=== PATIENT | female | born 1990 | race Caucasian/White ===

== ENCOUNTER 2020-06-19 22:14 | Emergency (ER) | payer SELFPAY ==
[2020-06-19 22:22] VITALS: BP 169/128; PULSE 92; RESP 18; TEMP 36.7; O2SAT 98; BMI 42.3
--- NOTE | 2020-06-19 22:50 | W.ED.ANIMALB ---
HPI - Animal Bite General: Chief Complaint: Animal Bite Stated Complaint: SORE ON L BREAST/POSS SPIDER BITE Time Seen by Provider: 06/19/20 22:41 Source: patient Mode of arrival: ambulatory Limitations: no limitations History of Present Illness: HPI narrative: Patient comes in for a sore to her left breast. Patient reports has noticed this starting last week as a small bump and now has ulcerated out over the last 2 to 3 days. Patient appears well. Patient appears in no acute distress. Review of Systems General: Reports: 10 or more systems reviewed and unremarkable except in HPI and below Skin/Breast: Reports: erythema and new lesions [facility] ED Female Reproductive History: Date of last menstrual period: 06/12/20 Physical Exam Const: COMMON NORMALS: no acute distress and patient oriented x3 GENERAL APPEARANCE: cooperative HENMT: COMMON NORMALS: normocephalic and Normal external nose present HEAD & SCALP: normal to inspection and normocephalic NOSE: Normal external nose present MOUTH: Normal oral and palatal mucosa present Eye: GENERAL EYE: appearance normal, both eyes and all related structures Neck/C-Spine: COMMON NORMALS: full ROM Chest: COMMONS NORMALS: normal inspection of the chest OTHER: To the 2 o'clock position of the left breast approximately 4 cm from the areola there is a ulcerated lesion approximately 5 mm in diameter with a area of redness 2 cm surrounding it. Resp: COMMON NORMALS: normal respiratory effort EFFORT & INSPECTION: Yes able to speak in complete sentences Cardio: COMMON NORMALS: regular rate and regular rhythm RATE: regular rate RHYTHM: regular rhythm GI: COMMON NORMALS: non-tender Extremity: COMMON NORMALS: normal to inspection Neuro: COMMON NORMALS: patient oriented x3 and moves all extremities Psych: COMMON NORMALS: mental status grossly normal and cooperative Skin: COMMON NORMALS: no rashes or lesions noted GENERAL SKIN EXAM: no rashes or lesions noted Course Vital Signs: Vital signs: Vital Signs Temperature 98.1 F 06/19/20 22:22 Pulse Rate 92 06/19/20 22:22 Respiratory Rate 18 06/19/20 22:22 Blood Pressure 169/128 06/19/20 22:22 Pulse Oximetry 98 06/19/20 22:22 MDM - Animal Bite MDM Narrative: Medical decision making narrative: Patient comes in for ulceration with redness and tenderness to the left breast. Patient has a 2 to 3 cm area of redness to the left breast with a centralized ulcer. Remainder of exam is normal. Differential diagnosis infected insect bite, folliculitis, MRSA. Reviewed exam with patient recommended treatment with Bactrim DS 1 tablet twice a day for the next 7 to 10 days. Patient reported understanding of care plan and need for follow-up. Discharge Plan Discharge Patient Disposition: Home Clinical Impression: Infected insect bite of chest Qualifiers: Encounter type: initial encounter Laterality: left Qualified Code(s): S20.362A - Insect bite (nonvenomous) of left front wall of thorax, initial encounter Condition: Stable Prescriptions: New Bactrim DS 800-160 mg tablet 1 tab PO BID 10 Days Qty: 20 RF: 0 Discharge Orders: Discharge ED (Routine); Ordered 06/19/20 Ordered By: Ralph Barragan Discharge Diet: Usual diet Discharge Activity: Increase activity as tolerated Patient Instructions: Wound Infection (ED) Activity Restrictions/Additional Instructions: Continue with routine care. Wash wound twice daily with mild soap and water, and apply triple antibiotic ointment afterward. Take antibiotics by mouth as directed. Follow-up with primary care in 1 week for recheck. Return to the emergency department for worsening redness, high fever or new concerns. Coding Level of Care Code ED Contour Path Tape Mill Operator for Cate Barnett Exam Comprehensive
[2020-06-19] MEDS: sulfamethoxazole-trimeth DS 160-800 mg Tablet 1 TAB PO (23:01)
== END 2020-06-19 23:07 | disposition home or self-care (01) ==
PROVIDERS: Emergency Provider Nurse Practitioner Family
DX: S20.362A Insect bite (nonvenomous) of left front wall of thorax, initial encounter (principal); L08.9 Local infection of the skin and subcutaneous tissue, unspecified; W57.XXXA Bitten or stung by nonvenomous insect and other nonvenomous arthropods, initial encounter
CPT/HCPCS: 12345; 99281; 99282

== ENCOUNTER 2020-06-22 20:10 | Emergency (ER) | payer SELFPAY ==
[2020-06-22 20:16] VITALS: BP 171/117; PULSE 81; RESP 18; TEMP 36.5; O2SAT 98; BMI 42.3
--- NOTE | 2020-06-22 20:47 | ED_ITS ---
HPI - Skin/Abscess/Foreign Bdy General: Chief complaint: Skin/Abscess/Foreign Body Stated complaint: sore on left breast Time Seen by Provider: 06/22/20 20:31 Source: patient Mode of arrival: ambulatory Limitations: no limitations History of Present Illness: HPI narrative: 30-year-old female patient presents to the emergency department with 4-day onset of wound to the left breast. She does not have a history of MRSA. She states received Bactrim and wound has not healed. She was seen in the ED on 06/19/2020 and prescribed Bactrim DS. He is requesting a wound culture be completed today. She denies pain or irritation of the area. She states the area is draining. She denies fever chills or redness or swelling. MD complaint: abscess/boil Onset (ago): day(s) (3-4) Tetanus up to date: yes Associated symptoms: Deny chills, fever(s), nausea or vomiting Treatments prior to arrival: bandages, attempted to drain pus at home and antibiotic Review of Systems General: Reports: 10 or more systems reviewed and unremarkable except in HPI and below Const: Denies: fever(s), chills or diaphoresis Eyes: Denies: blurry vision or eye redness ENMT: Denies: throat pain, dental pain or disequilibrium Card: Denies: chest pain, palpitations or irregular heart rhythm Resp: Denies: dyspnea, productive cough, non-productive cough or wheezing GI: Denies: abdominal pain, nausea or vomiting : Denies: difficulty voiding or dysuria Musc: Denies: back pain Skin/Breast: Reports: sores (left breast); Denies: rash or pruritus Neuro: Denies: headache(s), weakness in extremities or behavioral changes Psych: Denies: anxiety or depression Danny/Lymph: Denies: easy bruising [facility] ED Female Reproductive History: Date of last menstrual period: 06/08/20 Physical Exam Const: COMMON NORMALS: no acute distress, patient oriented x3, healthy appearing and alert GENERAL APPEARANCE: cooperative, comfortable and well hydrated HENMT: COMMON NORMALS: normocephalic, Normal external nose present and moist oral mucous membranes HEAD & SCALP: normocephalic NOSE: Normal external nose present Eye: COMMON NORMALS: Equal, round and reactive pupils present and EOMs intact bilaterally GENERAL EYE: appearance normal, both eyes and all related structures PUPIL: Yes Equal, round and reactive pupils present Neck/C-Spine: COMMON NORMALS: full ROM and no lymphadenopathy GENERAL: Yes normal visual inspection and Yes trachea midline CERVICAL SPINE: Yes cervical ROM normal Lymph: LYMPHATIC: no lymphadenopathy noted Chest: COMMONS NORMALS: normal inspection of the chest Resp: COMMON NORMALS: normal respiratory effort and clear to auscultation bilaterally AUSCULTATION: clear to auscultation bilaterally Cardio: COMMON NORMALS: regular rhythm, S1 normal heart sound present and S2 normal heart sound present RHYTHM: regular rhythm HEART SOUNDS: S1 normal heart sound present and S2 normal heart sound present GI: COMMON NORMALS: Soft to palpation and non-tender INSPECTION: Yes normal to inspection PALPATION: Yes Soft to palpation : COMMON NORMALS: Yes no CVA tenderness BLADDER/KIDNEY EXAM: Yes no CVA tenderness Back/Pelvis: COMMON NORMALS: no CVA tenderness and thoracic and lumbar spine normal to inspection Extremity: COMMON NORMALS: normal to inspection and capillary refill normal Neuro: COMMON NORMALS: patient oriented x3 and no focal motor deficits SENSORIUM/ORIENTATION: Yes alert Psych: COMMON NORMALS: mental status grossly normal, Normal thought process present and cooperative ACTIVITY/MOTOR BEHAVIOR: Yes appropriate eye contact THOUGHT PROCESS: Normal thought process present Skin: COMMON NORMALS: no rashes or lesions noted, turgor normal and no petechiae GENERAL SKIN EXAM: no rashes or lesions noted, elasticity normal and turgor normal WOUNDS: Yes wounds noted size (2.0 cm x 1.5 cm left breast, 4 cm at 3 o'clock, no mass/erythema), bed granulating well, drainage serosanguineous (scant) and open; without any surrounding erythema Course Vital Signs: Vital signs: Vital Signs Temperature 97.7 F 06/22/20 20:16 Pulse Rate 81 06/22/20 20:16 Respiratory Rate 18 06/22/20 20:16 Blood Pressure 171/117 06/22/20 20:16 Pulse Oximetry 98 06/22/20 20:16 MDM - Skin/Abscess/Foreign Bdy MDM Narrative: Medical decision making narrative: 30-year-old female patient presents to the emergency department with 4-day history of skin abscess to the left breast. She reports concern as abscess has not healed and she has been on Bactrim for 2 to 3 days. Explanation provided that antibiotics will take 24 to 48 hours and sometimes up to 72 hours before improvement is noted; area is not indurated, is draining without surrounding cellulitis, culture was obtained, was nontender, no breast masses appreciated. Patient was hypertensive upon exam as she was during her previous visit on 06/19/2020; social service referral placed so patient can have primary care follow-up for blood pressure and reevaluation for abscess; I counseled patient regarding low-salt diet and low-fat diet with need for weight loss. She states new to the area and blood pressure was normal prior to her arriving to [place]. Discharge Plan Discharge Patient Disposition: Home Clinical Impression: Abscess of skin or subcutaneous tissue Qualifiers: Site of cutaneous abscess: trunk Site of cutaneous abscess of trunk: chest wall Qualified Code(s): L02.213 - Cutaneous abscess of chest wall HTN (hypertension) Qualifiers: Hypertension type: unspecified Qualified Code(s): I10 - Essential (primary) hypertension Condition: Stable Prescriptions: New mupirocin 2 % ointment 1 applic topical BID Qty: 15 RF: 0 No Action Bactrim DS 800-160 mg tablet 1 tab PO BID 10 Days Qty: 20 RF: 0 Discharge Orders: Discharge ED (Routine); Ordered 06/22/20 Ordered By: Nichole Tompkins Discharge Diet: Cardiac and Low Fat Discharge Activity: Resume usual activity Patient Instructions: Wound Infection (ED), Abscess (ED) Activity Restrictions/Additional Instructions: Take Bactrim until all gone, cleanse with mild soap daily, keep wound covered until completely healed. Avoid picking or attempting draining of the area. May apply prescribed ointment to the area twice daily for 7 days Low-salt diet, no added salt as this will help decrease her blood pressure, high school social studies tutor will be contacting you with a follow-up appointment with a primary care provider in regards to your blood pressure and reevaluation of the wound to the left breast. Return to the emergency department if you develop worsening/concerning symptoms. Coding Level of Care Code ED Passenger Rate Clerk for Cate Barnett Exam Comprehensive
--- NOTE | 2020-06-26 11:06 | DCPLANNER ---
airport manager had message to speak with patient about getting established with a primary care physician. airport manager called [phone], unable to speak with patient at this time, a voicemail was left for patient to return case liner phone call.
== END 2020-06-22 21:05 | disposition home or self-care (01) ==
PROVIDERS: Emergency Provider Nurse Practitioner Family
DX: L02.213 Cutaneous abscess of chest wall (principal); I10 Essential (primary) hypertension
CPT/HCPCS: 12345; 87070; 87075; 87205; 99281; 99282

== ENCOUNTER 2020-09-07 19:23 | Emergency (ER) | payer SELFPAY ==
[2020-09-07 19:32] VITALS: BP 167/119; PULSE 90; RESP 18; TEMP 36.8; O2SAT 98; BMI 40.7
[2020-09-07] MEDS: ketorolac 30 mg/mL INJ IVP (21:41)
[2020-09-07 21:42] VITALS: RESP 18; O2SAT 98
[2020-09-07] MEDS: sodium chloride 0.9% 1,000 ML 999 ML IV (21:42)
[2020-09-07] MEDS: morphine 4 mg/mL SDV 1 mL IVP (21:42)
[2020-09-07] MEDS: ondansetron 2 mg/ML SDV 2 mL 4 MG IVP (21:42)
[2020-09-07 21:45] LABS: Add Urine Microscopic? YES; Bilirubin Urine 1+ (Negative); Blood Urine 3+ (Negative); Glucose Urine UA Norm (Normal); Ketones Urine 1+ (Negative); Leukocyte Esterase Urine Trace (Negative); Nitrate Urine Negative (Negative); Protein Urine 1+ (Negative); Specific Gravity, Urine 1.025 (1.005-1.030); Urine Appearance Cloudy (CLEAR); Urine Color Yellow (Yellow); Urobilinogen Urine 4 mg/dL (Negative); pH Urine 5 (5-7)
[2020-09-07 21:46] LABS: Amorphous Sediment Urine 4+ /hpf; Bacteria Urine TRACE /hpf; Calcium Oxalate Crystals Urine 0-4 /hpf; RBC Urine 0-4 /hpf (0-2); Squamous Epithelial Cell Urine 0-4 /hpf (0-5); WBC Urine 0-4 /hpf (0-5)
--- NOTE | 2020-09-07 21:49 | W.ED.NAVMDI ---
HPI - Nausea/Vomiting/Diarrhea General: Chief complaint: Nausea/Vomiting/Diarrhea Stated complaint: N/V X 4 DAYS Time Seen by Provider: 09/07/20 20:54 History of Present Illness: HPI Narrative: Healthy 30-year-old female presents with 4 days of nausea vomiting and some diarrhea. No blood in the stool or vomit. She has a niece who vomited once today or yesterday, and another family member has been nauseated. No other sick contacts. No documented fever, but she has had chills. She states she has had a mild cough. No shortness of breath or sputum production. MD elicited complaint: nausea, vomiting, diarrhea and abdominal pain Onset (ago): day(s) (4) Description of vomiting: food contents and watery Associated nausea: Yes Associated abdominal pain: Yes Location of pain: Diffuse Pain consistency: intermittent Severity: moderate Quality: cramping and stabbing Relieving factors: none Context: sick contacts (Possibly) Associated symtoms: Reports cough, diaphoresis, fevers/chills and nausea; Denies anxiety, change in vision, chest pain, dizziness, dysuria or fecal incontinence Review of Systems Const: Reports: chills and diaphoresis; Denies: fever(s) Eyes: Denies: change in vision ENMT: Denies: throat pain, nasal discharge or nasal congestion Card: Denies: chest pain Resp: Reports: non-productive cough; Denies: dyspnea, productive cough or wheezing GI: Reports: nausea; Denies: fecal incontinence : Denies: dysuria or urinary frequency Musc: Denies: neck pain or back pain Skin/Breast: Denies: rash or erythema Neuro: Denies: dizziness Psych: Denies: anxiety [facility] ED Female Reproductive History: Date of last menstrual period: 06/08/20 Physical Exam Const: GENERAL APPEARANCE: well developed ORIENTATION/CONSCIOUSNESS: Yes oriented to person, Yes oriented to place and Yes oriented to time HENMT: COMMON NORMALS: normocephalic, external ears normal and Normal external nose present HEAD & SCALP: normocephalic FACE & SINUS: normal facial exam NOSE: Normal external nose present and No nasal discharge present EXTERNAL EAR: Yes external ears normal Eye: COMMON NORMALS: Equal, round and reactive pupils present, EOMs intact bilaterally and conjunctivae normal EYELID: eyelids normal CONJUNCTIVA: Yes conjunctivae normal PUPIL: Yes Equal, round and reactive pupils present Neck/C-Spine: GENERAL: No tracheal deviation Chest: COMMONS NORMALS: normal inspection of the chest CHEST: No tenderness Resp: COMMON NORMALS: clear to auscultation bilaterally EFFORT & INSPECTION: No tachypneic, No respiratory distress, No retractions, No uses accessory muscles and No tracheal deviation AUSCULTATION: clear to auscultation bilaterally, no rhonchi, no wheezes and lung sounds not diminished Cardio: COMMON NORMALS: regular rate and regular rhythm RATE: regular rate RHYTHM: regular rhythm HEART SOUNDS: no murmurs PERIPHERAL PULSES: radial pulses present GI: INSPECTION: No abdominal distension AUSCULTATION: No Hyperactive bowel sounds present and No Hypoactive bowel sounds present PALPATION: Yes Tenderness to palpation present (GI) (Diffuse), No Guarding due to palpation present (GI) and No Rigid due to palpation PERCUSSION: no dullness to percussion and no tympanic to percussion Neuro: SENSORIUM/ORIENTATION: Yes oriented to person, Yes oriented to place and Yes oriented to time Psych: COMMON NORMALS: mental status grossly normal Skin: COMMON NORMALS: no rashes or lesions noted GENERAL SKIN EXAM: no rashes or lesions noted Course Vital Signs: Vital signs: Vital Signs Temperature 98.2 F 09/07/20 19:32 Pulse Rate 88 09/07/20 23:39 Respiratory Rate 18 09/08/20 00:14 Blood Pressure 146/89 09/08/20 00:14 Pulse Oximetry 98 09/08/20 00:14 MDM - Nausea/Vomiting/Diarrhea MDM Narrative: Medical decision making narrative: Patient improved after antiemetics, fluids. She is feeling much better. She will go home on Zofran scheduled for the next 24 hours, then as needed. Her labs are benign. Lab Data: Labs: Lab Results 09/07/20 09/07/20 09/07/20 Range/Units 20:23 21:15 22:28 WBC 10.1 H (4.0-10.0) 10^3/ uL RBC 4.98 (4.1-5.3) 10^6/u L Hgb 15.0 (11.5-15.3) g/dL Hct 48.9 H (37.0-47.0) % MCV 98.2 (81-99) fL MCH 30.1 (28.0-34.0) pg MCHC 30.7 (30.0-36.0) g/dL RDW 13.4 (12.1-15.1) % Plt Count 283 (130-400) 10^3/c mm MPV 9.8 (7.4-10.4) fL Neut % (Auto) 62.5 % Lymph % (Auto) 27.3 % [place] % (Auto) 6.1 % Eos % (Auto) 3.4 % Baso % (Auto) 0.4 % Neut # (Auto) 6.29 (1.8-7.7) 10^3/u L Lymph # (Auto) 2.8 (0.8-4.8) 10^3/u L [place] # (Auto) 0.6 (0.2-0.9) 10^3/u L Eos # (Auto) 0.3 (0.0-0.8) 10^3/u L Baso # (Auto) 0.0 (0.0-0.1) 10^3/u L Nucleated RBC % (a uto) 0 % Nucleated RBCs # 0.0 /100WBC Sodium 138 (136-145) mmol/L Potassium 3.6 (3.5-5.1) mmol/L Chloride 106 (98-107) mmol/L Carbon Dioxide 23 (22-29) mmol/L Anion Gap 12.6 (5-19) BUN 7 (6-20) mg/dL Creatinine 0.5 (0.5-0.9) mg/dL GFR Calculation 144.9 H (90-130) mL/min Glucose 121 H (65-115) mg/dL Calculated Osmolal ity 285 (285-295) mOsm/k g Calcium 7.8 L (8.5-10.5) mg/dL Total Bilirubin 0.2 (0.15-1.2) mg/dL AST 12 (0-32) U/L ALT 24 (0-33) U/L Alkaline Phosphata se 61 (35-105) IU/L C-Reactive Protein 14.5 H (0.0-4.9) mg/L Total Protein 6.3 L (6.6-8.7) g/dL Albumin 3.7 (3.5-5.2) g/dL Globulin 2.6 (1.3-4.6) g/dL Lipase 26 (13-60) U/L HCG, Qual (Negative) Urine Color Yellow (Yellow) Urine Appearance Cloudy (CLEAR) Urine pH 5 (5-7) Ur Specific Gravit y 1.025 (1.005-1.030) Urine Protein 1+ H (Negative) Urine Glucose (UA) Norm (Normal) Urine Ketones 1+ H (Negative) Urine Blood 3+ H (Negative) Urine Nitrate Negative (Negative) Urine Bilirubin 1+ H (Negative) Urine Urobilinogen 4 H (Negative) mg/dL Ur Leukocyte Shreya ase Trace H (Negative) Urine RBC 0-4 H (0-2) /hpf Urine WBC 0-4 H (0-5) /hpf Ur Squamous Epith Cells 0-4 H (0-5) /hpf Calcium Oxalate Cr ystal 0-4 H /hpf Amorphous Sediment 4+ /hpf Urine Bacteria Trace (NONE) /hpf 09/07/20 Range/Units 22:28 WBC (4.0-10.0) 10^3/ uL RBC (4.1-5.3) 10^6/u L Hgb (11.5-15.3) g/dL Hct (37.0-47.0) % MCV (81-99) fL MCH (28.0-34.0) pg MCHC (30.0-36.0) g/dL RDW (12.1-15.1) % Plt Count (130-400) 10^3/c mm MPV (7.4-10.4) fL Neut % (Auto) % Lymph % (Auto) % [place] % (Auto) % Eos % (Auto) % Baso % (Auto) % Neut # (Auto) (1.8-7.7) 10^3/u L Lymph # (Auto) (0.8-4.8) 10^3/u L [place] # (Auto) (0.2-0.9) 10^3/u L Eos # (Auto) (0.0-0.8) 10^3/u L Baso # (Auto) (0.0-0.1) 10^3/u L Nucleated RBC % (a uto) % Nucleated RBCs # /100WBC Sodium (136-145) mmol/L Potassium (3.5-5.1) mmol/L Chloride (98-107) mmol/L Carbon Dioxide (22-29) mmol/L Anion Gap (5-19) BUN (6-20) mg/dL Creatinine (0.5-0.9) mg/dL GFR Calculation (90-130) mL/min Glucose (65-115) mg/dL Calculated Osmolal ity (285-295) mOsm/k g Calcium (8.5-10.5) mg/dL Total Bilirubin (0.15-1.2) mg/dL AST (0-32) U/L ALT (0-33) U/L Alkaline Phosphata se (35-105) IU/L C-Reactive Protein (0.0-4.9) mg/L Total Protein (6.6-8.7) g/dL Albumin (3.5-5.2) g/dL Globulin (1.3-4.6) g/dL Lipase (13-60) U/L HCG, Qual Negative (Negative) Urine Color (Yellow) Urine Appearance (CLEAR) Urine pH (5-7) Ur Specific Gravit y (1.005-1.030) Urine Protein (Negative) Urine Glucose (UA) (Normal) Urine Ketones (Negative) Urine Blood (Negative) Urine Nitrate (Negative) Urine Bilirubin (Negative) Urine Urobilinogen (Negative) mg/dL Ur Leukocyte Shreya ase (Negative) Urine RBC (0-2) /hpf Urine WBC (0-5) /hpf Ur Squamous Epith Cells (0-5) /hpf Calcium Oxalate Cr ystal /hpf Amorphous Sediment /hpf Urine Bacteria (NONE) /hpf Discharge Plan Discharge Patient Disposition: Home Clinical Impression: Gastroenteritis Condition: Stable Prescriptions: New Zofran 4 mg tablet 4 mg PO Q6H PRN (Reason: nausea and vomiting) Qty: 10 RF: 0 No Action mupirocin 2 % ointment 1 applic topical BID Qty: 15 RF: 0 Discharge Orders: Discharge ED (Routine); Ordered 09/07/20 Ordered By: Mingo Infante Discharge Diet: Advance as tolerated and Clear Liquid Discharge Activity: Increase activity as tolerated Patient Instructions: Gastroenteritis (ED) Activity Restrictions/Additional Instructions: Return for continued vomiting despite treatment, blood in the vomitus or stool, fever greater than 100, worsening abdominal pain despite treatment, other concerning symptoms. See your doctor in 2 to 3 days for follow-up. Stand Alone Forms: Work/School Release Coding Level of Care Code ED Fish Checker for Chg Fwd Exam Comprehensive
[2020-09-07 21:54] LABS: Basophils % 0.4 %; Eosinophils # 0.3 10^3/uL (0.0-0.8); Eosinophils % 3.4 %; Hematocrit 48.9 % (37.0-47.0); Lymphocytes # 2.8 10^3/uL (0.8-4.8); Lymphocytes % 27.3 %; Mean Corpuscular HGB Conc 30.7 g/dL (30.0-36.0); Mean Corpuscular Hemoglobin 30.1 pg (28.0-34.0); Mean Corpuscular Volume 98.2 fL (81-99); Mean Platelet Volume 9.8 fL (7.4-10.4); Monocytes # 0.6 10^3/uL (0.2-0.9); Monocytes % 6.1 %; Neutrophils # 6.29 10^3/uL (1.8-7.7); Neutrophils % 62.5 %; Nucleated Red Blood Cells % 0 %; Platelet Count 283 10^3/cmm (130-400); Red Blood Count 4.98 10^6/uL (4.1-5.3); Red Cell Distribution Width 13.4 % (12.1-15.1); White Blood Count 10.1 10^3/uL (4.0-10.0)
[2020-09-07 22:45] LABS: HCG, Serum Qual Negative (Negative)
[2020-09-07 22:52] LABS: Alanine Aminotransferase 24 U/L (0-33); Albumin Level 3.7 g/dL (3.5-5.2); Alkaline Phosphatase 61 IU/L (35-105); Anion Gap 12.6 (5-19); Aspartate Amino Transferase 12 U/L (0-32); Blood Urea Nitrogen 7 mg/dL (6-20); C Reactive Protein 14.5 mg/L (0.0-4.9); Calcium 7.8 mg/dL (8.5-10.5); Carbon Dioxide 23 mmol/L (22-29); Chloride 106 mmol/L (98-107); Globulin 2.6 g/dL (1.3-4.6); Glomerular Filtration Rate 144.9 mL/min (90-130); Glucose 121 mg/dL (65-115); Lipase 26 U/L (13-60); Osmolality Calculated 285 mOsm/kg (285-295); Potassium 3.6 mmol/L (3.5-5.1); Sodium 138 mmol/L (136-145); Total Bilirubin 0.2 mg/dL (0.15-1.2); Total Protein 6.3 g/dL (6.6-8.7)
[2020-09-07 23:39] VITALS: BP 146/89; PULSE 88; RESP 18; O2SAT 98
[2020-09-08 00:14] VITALS: BP 146/89; RESP 18; O2SAT 98
== END 2020-09-08 00:15 | disposition home or self-care (01) ==
PROVIDERS: Physician Assistant; Emergency Provider Emergency Medicine
DX: K52.9 Noninfective gastroenteritis and colitis, unspecified (principal)
CPT/HCPCS: 80053; 81001; 83690; 84703; 85025; 86140; 96361; 96374; 96375; 99284; J1885; J2270; J2405; J7030

== ENCOUNTER 2020-11-03 19:44 | Emergency (ER) | payer OTHER, SELFPAY ==
[2020-11-03 19:47] VITALS: BP 181/113; PULSE 92; RESP 16; TEMP 36.9; O2SAT 99; BMI 42.3
--- NOTE | 2020-11-03 19:56 | W.ED.GENADLT ---
HPI - General Adult General: Chief complaint: General Medical Stated complaint: possible strep throat Time Seen by Provider: 11/03/20 19:48 Source: patient Mode of arrival: ambulatory Limitations: no limitations History of Present Illness: HPI narrative: Patient comes in with a sore throat for about 2 to 3 days. Patient feels worse today. Patient reports no fever. Review of Systems General: Reports: 10 or more systems reviewed and unremarkable except in HPI and below ENMT: Reports: throat pain [facility] ED Female Reproductive History: Date of last menstrual period: 06/08/20 Physical Exam Const: COMMON NORMALS: no acute distress and patient oriented x3 GENERAL APPEARANCE: cooperative HENMT: COMMON NORMALS: normocephalic, TM's normal bilaterally and Normal external nose present HEAD & SCALP: normal to inspection and normocephalic NOSE: Normal external nose present and Nasal discharge present EXTERNAL AUDITORY CANAL: Abnormal EAC present EAC laterality: left Details: otic discharge TYMPANIC MEMBRANE: TM's normal bilaterally MOUTH: Normal oral and palatal mucosa present THROAT: posterior oropharynx normal Eye: GENERAL EYE: appearance normal, both eyes and all related structures Neck/C-Spine: COMMON NORMALS: full ROM Lymph: LYMPHATIC: no lymphadenopathy noted Chest: COMMONS NORMALS: normal inspection of the chest Resp: COMMON NORMALS: normal respiratory effort EFFORT & INSPECTION: Yes able to speak in complete sentences Cardio: COMMON NORMALS: regular rate and regular rhythm RATE: regular rate RHYTHM: regular rhythm GI: COMMON NORMALS: non-tender : COMMON NORMALS: Yes no CVA tenderness BLADDER/KIDNEY EXAM: Yes no CVA tenderness Back/Pelvis: COMMON NORMALS: no CVA tenderness and thoracic and lumbar spine normal to inspection Extremity: COMMON NORMALS: normal to inspection Neuro: COMMON NORMALS: patient oriented x3 and moves all extremities Psych: COMMON NORMALS: mental status grossly normal and cooperative Skin: COMMON NORMALS: no rashes or lesions noted GENERAL SKIN EXAM: no rashes or lesions noted Course Vital Signs: Vital signs: Vital Signs Temperature 98.4 F 11/03/20 19:47 Pulse Rate 92 11/03/20 19:47 Respiratory Rate 16 11/03/20 19:47 Blood Pressure 181/113 11/03/20 19:47 Pulse Oximetry 99 11/03/20 19:47 MDM - General Adult MDM Narrative: Medical decision making narrative: Patient comes in for sore throat for 3 days. Patient denies any fever. On exam we note posterior pharyngeal nasal drainage, mild erythema, no cervical lymphadenopathy, bilateral TMs are clear, patient does have some whitish discharge in the left ear canal. No significant redness or swelling is noted to the left ear canal. Differential diagnosis includes not limited to upper respiratory infections, viral syndrome, strep pharyngitis. Strep test was performed and was negative. Patient was given dexamethasone 10 mg p.o. for throat pain. Patient was encouraged to drink plenty of fluids, use acetaminophen and ibuprofen for discomfort, and [id number] cold and flu medication as needed. Patient reported understanding agreed to plan. Lab Data: Labs: Lab Results 11/03/20 Range/Units 19:53 Group A Strep Rapi d Negative (Negative) Discharge Plan Discharge Patient Disposition: Home Clinical Impression: URI (upper respiratory infection) Qualifiers: URI type: acute pharyngitis Pharyngitis/tonsillitis etiology: unspecified etiology Qualified Code(s): J02.9 - Acute pharyngitis, unspecified Condition: Stable Prescriptions: No Action mupirocin 2 % ointment 1 applic topical BID Qty: 15 RF: 0 Zofran 4 mg tablet 4 mg PO Q6H PRN (Reason: nausea and vomiting) Qty: 10 RF: 0 Discharge Orders: Discharge ED (Routine); Ordered 11/03/20 Ordered By: Ralph Barragan Discharge Diet: Usual diet Discharge Activity: Increase activity as tolerated Patient Instructions: Upper Respiratory Infection (ED), Opioid Safety Activity Restrictions/Additional Instructions: Drink plenty of fluids. Use acetaminophen and ibuprofen for discomfort. You had a negative strep test, we do a throat culture at the time of a negative strep test. If something grows out that requires antibiotic we will contact you and call in medication. You may use [id number] cold and flu medication for further symptoms such as nasal congestion and cough. Is important to stay well-hydrated. Is important to get plenty of rest. Follow-up with primary care as needed. Return to the ER for new concerns. Stand Alone Forms: Work/School Release Coding Level of Care Code ED Application Integration Specialist for Cate Fwd Exam Comprehensive
[2020-11-03 20:03] LABS: Rapid Strep A Test Negative (Negative)
[2020-11-03] MEDS: dexamethasone 4 mg Tablet 10 MG PO (20:20)
[2020-11-03 20:58] VITALS: BP 181/113; PULSE 92; RESP 16; O2SAT 99
== END 2020-11-03 20:30 | disposition home or self-care (01) ==
PROVIDERS: Emergency Provider Nurse Practitioner Family
DX: J02.9 Acute pharyngitis, unspecified (principal)
CPT/HCPCS: 87081; 87880; 99283; J8540

== ENCOUNTER 2020-11-05 21:09 | Emergency (ER) | payer OTHER, SELFPAY ==
[2020-11-05 21:10] VITALS: BP 158/113; PULSE 91; RESP 16; TEMP 37.3; O2SAT 96; BMI 42.3
--- NOTE | 2020-11-05 21:30 | W.ED.URI ---
HPI - URI/Sore Throat General: Chief Complaint: Upper Respiratory Infection Stated Complaint: very sore throat Time Seen by Provider: 11/05/20 21:22 History of Present Illness: HPI Narrative: 30-year-old female comes in today for complaints of sore throat. Patient was treated with dexamethasone 2 days ago and did have good results until this morning. This morning her throat pain seemed to return. Patient also reports some ear discomfort and some sinus drainage. Respirations were even lungs were clear to auscultation. Skin was warm and dry. MD elicited complaint: sore throat and nasal congestion Review of Systems General: Reports: 10 or more systems reviewed and unremarkable except in HPI and below ENMT: Reports: throat pain [facility] ED Female Reproductive History: Date of last menstrual period: 10/22/20 Physical Exam Const: COMMON NORMALS: no acute distress and patient oriented x3 GENERAL APPEARANCE: cooperative HENMT: COMMON NORMALS: normocephalic, TM's normal bilaterally and Normal external nose present HEAD & SCALP: normal to inspection and normocephalic NOSE: Normal external nose present TYMPANIC MEMBRANE: TM's normal bilaterally MOUTH: Normal oral and palatal mucosa present THROAT: posterior oropharynx abnormal cobblestoning and postnasal drainage Eye: GENERAL EYE: appearance normal, both eyes and all related structures Neck/C-Spine: COMMON NORMALS: full ROM Chest: COMMONS NORMALS: normal inspection of the chest Resp: COMMON NORMALS: normal respiratory effort EFFORT & INSPECTION: Yes able to speak in complete sentences Cardio: COMMON NORMALS: regular rate and regular rhythm RATE: regular rate RHYTHM: regular rhythm GI: COMMON NORMALS: non-tender Extremity: COMMON NORMALS: normal to inspection Neuro: COMMON NORMALS: patient oriented x3 and moves all extremities Psych: COMMON NORMALS: mental status grossly normal and cooperative Skin: COMMON NORMALS: no rashes or lesions noted GENERAL SKIN EXAM: no rashes or lesions noted Course Vital Signs: Vital signs: Vital Signs Temperature 99.2 F 11/05/20 21:10 Pulse Rate 91 11/05/20 21:10 Respiratory Rate 16 11/05/20 21:10 Blood Pressure 158/113 11/05/20 21:10 Pulse Oximetry 96 11/05/20 21:10 MDM - URI/Sore Throat MDM Narrative: Medical decision making narrative: Patient comes in for recurrent sore throat. On exam posterior pharynx shows a lot of cobblestoning and clear drainage. Reviewed throat culture report from prior visit 2 days ago and it has no growth at this time. Differential diagnosis includes but not limited to viral syndrome, upper respiratory infection, strep pharyngitis. Recommended continuing with supportive care. We gave patient another dose of dexamethasone 10 mg. We wrote for a prescription for 6 mg tablets to take daily as needed for sore throat. We will wait throat culture for need of antibiotic. Discharge Plan Discharge Patient Disposition: Home Clinical Impression: URI (upper respiratory infection) Qualifiers: URI type: acute pharyngitis Pharyngitis/tonsillitis etiology: unspecified etiology Qualified Code(s): J02.9 - Acute pharyngitis, unspecified Condition: Stable Prescriptions: New dexamethasone 6 mg tablet 6 mg PO DAILY Qty: 3 RF: 0 No Action mupirocin 2 % ointment 1 applic topical BID Qty: 15 RF: 0 Zofran 4 mg tablet 4 mg PO Q6H PRN (Reason: nausea and vomiting) Qty: 10 RF: 0 Discharge Orders: Discharge ED (Routine); Ordered 11/05/20 Ordered By: Ralph Barragan Discharge Diet: Usual diet Discharge Activity: Increase activity as tolerated Patient Instructions: Upper Respiratory Infection (ED), Opioid Safety Activity Restrictions/Additional Instructions: Drink plenty of fluids. Use acetaminophen and ibuprofen for pain. The final culture report should be done within the next 2 days. If anything grows out from your throat culture we will contact you with antibiotics and call it in for you. Repeat the dexamethasone daily as needed for persistent throat discomfort. Drink plenty of water. Follow-up with primary care as needed. Coding Level of Care Code ED Chemical Waste Management Technician for Cate Barnett
[2020-11-05] MEDS: dexamethasone 4 mg Tablet 10 MG PO (21:35)
== END 2020-11-05 21:40 | disposition home or self-care (01) ==
PROVIDERS: Emergency Provider Nurse Practitioner Family
DX: J02.9 Acute pharyngitis, unspecified (principal)
CPT/HCPCS: 99282; J8540

== ENCOUNTER 2020-11-07 13:27 | Inpatient (IN) | payer OTHER, SELFPAY ==
[2020-11-07 13:33] VITALS: BP 162/106; PULSE 104; RESP 16; TEMP 36.5; O2SAT 97; BMI 42.3
--- NOTE | 2020-11-07 13:41 | ECG_ITS ---
Test Date: 2020-11-07 Pat Name: Naida Bentley Department: Room: Gender: Female [employer]: : 1990 Requested By: Oscar Leung Order Number: [id number] Kalina MD: Pari Arango M.D. Measurements Intervals [place] Rate: 76 P: 52 NE: 130 QRS: 83 QRSD: 101 T: 21 QT: 373 QTc: 421 Interpretive Statements SINUS RHYTHM LOW QRS VOLTAGE IN PRECORDIAL LEADS [QRS DEFLECTION < 1.0 mV IN CHEST LEADS] No previous ECG available for comparison Electronically Signed On 11-07-2020 16:26:02 CDT by Pari Arango M.D. [email or web address]
--- NOTE | 2020-11-07 13:46 | W.ED.PSYCH ---
HPI - Psych General: Chief Complaint: Psychiatric Symptoms Stated Complaint: SI Time Seen by Provider: 11/07/20 13:41 History of Present Illness: HPI Narrative: This patient is a 30-year-old female who presents to the emergency department with complaint of suicidal ideation. Patient states that she has had issues with depression since the age of 4 and has been in and out of therapy for the same. Patient states she does not currently take any medications. 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 Patient states she has never had any inpatient treatment. Patient states that the depression is getting so bad that she is thinking about developing a plan of suicide but she does not currently have one. Patient states that her depression she started taking her mother's Wellbutrin but thinks is making her depression worse. Patient has not been as prescribed any medication of her own. Will do medical evaluation treat as needed Duration: constant and getting worse History of same: Yes Relieving factors: none Exacerbating factors: none Associated symptoms: Reports depression and suicidal ideation Review of Systems General: Reports: 10 or more systems reviewed and unremarkable except in HPI and below Const: Denies: fever(s), chills, body aches or fatigue Eyes: Denies: change in vision or blurry vision ENMT: Denies: throat pain, hoarseness or mouth pain Card: Denies: chest pain, palpitations, irregular heart rhythm, edema, swelling of feet/ankles or lightheadedness Resp: Denies: dyspnea, productive cough, non-productive cough, wheezing or pain on inspiration GI: Denies: abdominal pain, nausea or vomiting : Denies: flank pain, difficulty voiding, dysuria, urinary frequency, urinary urgency or urinary hesitancy Musc: Denies: neck pain, back pain, extremity pain, extremity swelling, joint pain, joint swelling, joint redness, joint warmth or limited range of motion Skin/Breast: Denies: rash, pruritus, erythema or skin tenderness Neuro: Denies: headache(s), numbness in extremities or weakness in extremities Psych: Reports: depression, sleeping more and suicidal ideation; Denies: anxiety PFS ED PFSH: Social History Smoking and tobacco status: current every day smoker cigarettes Packs smoked per day: 0.5 Alcohol intake: current Alcohol intake frequency: 0-2 Drinks per Day Substance/Drug Use: current Substance/Drug use frequency: Special occassions/opportunity only Substance/Drug use type: Marijuana Female Reproductive History: Date of last menstrual period: 10/24/20 Physical Exam Const: COMMON NORMALS: no acute distress, average body habitus, patient oriented x3, no limitations, healthy appearing, alert and well nourished GENERAL APPEARANCE: well kempt HENMT: COMMON NORMALS: normocephalic, atraumatic, hearing grossly normal bilaterally, external ears normal, EAC's normal, TM's normal bilaterally, Normal external nose present, Normal nasal mucous membranes and turbinates present, moist oral mucous membranes, oropharynx normal, dentition normal and gingiva normal HEAD & SCALP: normocephalic and atraumatic NOSE: Normal external nose present and Normal nasal mucous membranes and turbinates present EXTERNAL EAR: Yes external ears normal EXTERNAL AUDITORY CANAL: EAC's normal TYMPANIC MEMBRANE: TM's normal bilaterally Neck/C-Spine: COMMON NORMALS: full ROM, no lymphadenopathy, supple, no meningeal signs, no JVD, Thyroid normal and No carotid bruits THYROID: Thyroid normal Chest: COMMONS NORMALS: normal inspection of the chest, normal palpation of entire chest wall, normal inspection of the breasts and normal palpation of the breasts Breast/axilla inspection: Yes normal inspection of the breasts BREAST/AXILLA PALPATION: Yes normal palpation of the breasts Resp: COMMON NORMALS: normal respiratory effort, No retractions, No use of accessory muscles, clear to auscultation bilaterally and percussion normal AUSCULTATION: clear to auscultation bilaterally PERCUSSION: percussion normal Cardio: COMMON NORMALS: no JVD, regular rate, regular rhythm, S1 normal heart sound present, S2 normal heart sound present, No gallops present (Cardio), No clicks present (Cardio), No murmurs present (Cardio), No rub (Cardio) and Peripheral pulses 2+ throughout RATE: regular rate RHYTHM: regular rhythm HEART SOUNDS: S1 normal heart sound present and S2 normal heart sound present PERIPHERAL PULSES: Peripheral pulses 2+ throughout GI: COMMON NORMALS: Normal to inspection, nondistended, normoactive bowel sounds present, Soft to palpation, non-tender, No hepatosplenomegaly present, no masses and no bruits PALPATION: Yes Soft to palpation and Yes No hepatosplenomegaly present : COMMON NORMALS: Yes no CVA tenderness, Yes normal appearance of the vagina and Yes normal bimanual exam BLADDER/KIDNEY EXAM: Yes no CVA tenderness BIMANUAL EXAM - VAGINA & UTERUS: Yes normal bimanual exam Back/Pelvis: COMMON NORMALS: no CVA tenderness, thoracic and lumbar spine normal to inspection, no thoracic nor lumbar tenderness, thoraco-lumbar ROM normal and straight leg raise negative bilaterally Extremity: COMMON NORMALS: normal to inspection, full ROM, capillary refill normal, no joint enlargement, no clubbing, cyanosis or edema, no calf tenderness and no pedal edema Neuro: COMMON NORMALS: patient oriented x3 SENSORIUM/ORIENTATION: Yes alert MENINGEAL SIGNS: Yes no meningeal signs Psych: COMMON NORMALS: mental status grossly normal and speech normal APPEARANCE: Yes grossly normal and Yes well kempt ATTITUDE: Yes calm and Yes engaged ACTIVITY/MOTOR BEHAVIOR: Yes appropriate eye contact SPEECH: Yes normal speech MOOD & AFFECT: Yes depressed mood THOUGHT CONTENT: Yes Suicidality present Course Reevaluation(s): Reevaluation #1: I did discuss at length with patient about findings. There are concerns about depression and suicidal ideation. Patient is agreeable to be admitted to the hospital for further evaluation. To the psychological unit. Patient understands her elevation of her white count. And is trying to provide a urine patient has no fever no cough chest x-ray negative. Labs thus far unremarkable. Patient be admitted to the psychological unit for further evaluation for suicidal ideation and depression Time: 14:51 Consultations: Consultation #1: I did discuss at length with Dr. De La Vega. He is agreed to accept the patient in the psychological unit for suicidal ideation. He will see patient upon arrival Time: 14:51 Vital Signs: Vital signs: Vital Signs Temperature 97.7 F 11/07/20 13:33 Pulse Rate 104 H 11/07/20 13:33 Respiratory Rate 16 11/07/20 13:33 Blood Pressure 162/106 11/07/20 13:33 Pulse Oximetry 97 11/07/20 13:33 MDM - Psych MDM Narrative: Medical decision making narrative: This patient is a 30-year-old female who presents to the emergency department with complaint of suicidal ideation. Patient states that she has had issues with depression since the age of 4 and has been in and out of therapy for the same. Patient states she does not currently take any medications. 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 Patient states she has never had any inpatient treatment. Patient states that the depression is getting so bad that she is thinking about developing a plan of suicide but she does not currently have one. Patient states that her depression she started taking her mother's Wellbutrin but thinks is making her depression worse. Patient has not been as prescribed any medication of her own. I did discuss at length with patient about findings. There are concerns about depression and suicidal ideation. Patient is agreeable to be admitted to the hospital for further evaluation. To the psychological unit. Patient understands her elevation of her white count. And is trying to provide a urine patient has no fever no cough chest x-ray negative. Labs thus far unremarkable. Patient be admitted to the psychological unit for further evaluation for suicidal ideation and depression I did discuss at length with Dr. De La Vega. He is agreed to accept the patient in the psychological unit for suicidal ideation. He will see patient upon arrival Medical Records: Attestation: I reviewed the patient's medical records. Lab Data: Attestation: I reviewed the patient's lab results. Labs: Lab Results 11/07/20 11/07/20 Range/Units 14:16 14:16 WBC 21.4 H (4.0-10.0) 10^3/ uL RBC 5.16 (4.1-5.3) 10^6/u L Hgb 15.6 H (11.5-15.3) g/dL Hct 45.5 (37.0-47.0) % MCV 88.2 (81-99) fL MCH 30.2 (28.0-34.0) pg MCHC 34.3 (30.0-36.0) g/dL RDW 13.9 (12.1-15.1) % Plt Count 344 (130-400) 10^3/c mm MPV 9.7 (7.4-10.4) fL Neut % (Auto) 82.4 % Lymph % (Auto) 12.9 % Hawkins % (Auto) 3.9 % Eos % (Auto) 0.1 % Baso % (Auto) 0.2 % Neut # (Auto) 17.63 H (1.8-7.7) 10^3/u L Lymph # (Auto) 2.8 (0.8-4.8) 10^3/u L Hawkins # (Auto) 0.8 (0.2-0.9) 10^3/u L Eos # (Auto) 0.0 (0.0-0.8) 10^3/u L Baso # (Auto) 0.1 (0.0-0.1) 10^3/u L Nucleated RBC % (a uto) 0 % Nucleated RBCs # 0.0 /100WBC Sodium 137 (136-145) mmol/L Potassium 4.1 (3.5-5.1) mmol/L Chloride 101 (98-107) mmol/L Carbon Dioxide 24 (22-29) mmol/L Anion Gap 16.1 (5-19) BUN 11 (6-20) mg/dL Creatinine 0.7 (0.5-0.9) mg/dL GFR Calculation 98.3 (90-130) mL/min Glucose 108 (65-115) mg/dL Calculated Osmolal ity 284 L (285-295) mOsm/k g Calcium 8.3 L (8.5-10.5) mg/dL Total Bilirubin 0.2 (0.15-1.2) mg/dL AST 7 (0-32) U/L ALT 14 (0-33) U/L Alkaline Phosphata se 76 (35-105) IU/L Total Protein 6.4 L (6.6-8.7) g/dL Albumin 3.9 (3.5-5.2) g/dL Globulin 2.5 (1.3-4.6) g/dL TSH 0.52 (0.27-4.20) uIU/ mL Salicylates < 0.3 L (3-10) mg/dL Acetaminophen < 5.0 L (10-30) ug/mL Ethyl Alcohol < 10 (0-10) mg/dL Imaging Data^: CXR: Attestation: I personally reviewed and interpreted this imaging study as follows: Radiologist's impression: Impression: Negative chest. Discharge Plan Discharge Patient Disposition: Placed in Observation Admit Provider: Tristen De La Vega Clinical Impression: Suicidal ideation, Depression, Leukocytosis Coding Level of Care Code ED Plate Sensitizer for g Fwd Exam Comprehensive
--- NOTE | 2020-11-07 13:56 | PC.NURSE ---
pts belongings were placed in the file locker
[2020-11-07 14:25] LABS: Basophils # 0.1 10^3/uL (0.0-0.1); Basophils % 0.2 %; Eosinophils % 0.1 %; Hematocrit 45.5 % (37.0-47.0); Hemoglobin 15.6 g/dL (11.5-15.3); Lymphocytes # 2.8 10^3/uL (0.8-4.8); Lymphocytes % 12.9 %; Mean Corpuscular HGB Conc 34.3 g/dL (30.0-36.0); Mean Corpuscular Hemoglobin 30.2 pg (28.0-34.0); Mean Corpuscular Volume 88.2 fL (81-99); Mean Platelet Volume 9.7 fL (7.4-10.4); Monocytes # 0.8 10^3/uL (0.2-0.9); Monocytes % 3.9 %; Neutrophils # 17.63 10^3/uL (1.8-7.7); Neutrophils % 82.4 %; Nucleated Red Blood Cells % 0 %; Platelet Count 344 10^3/cmm (130-400); Red Blood Count 5.16 10^6/uL (4.1-5.3); Red Cell Distribution Width 13.9 % (12.1-15.1); White Blood Count 21.4 10^3/uL (4.0-10.0)
--- NOTE | 2020-11-07 14:26 | XR_ITS ---
WS: [id number] Portable AP upright chest, 11/07/2020 Clinical Data: Cough Comparison: None. Findings: No nodules, masses or effusions are seen. The heart is normal. The pulmonary vascularity is not increased. No pneumonia or pneumothorax is seen. The right diaphragm is elevated. XR/XR chest 1V portable [id number] Impression: Negative chest.
[2020-11-07 14:59] LABS: Alanine Aminotransferase 14 U/L (0-33); Albumin Level 3.9 g/dL (3.5-5.2); Alkaline Phosphatase 76 IU/L (35-105); Anion Gap 16.1 (5-19); Aspartate Amino Transferase 7 U/L (0-32); Blood Urea Nitrogen 11 mg/dL (6-20); Calcium 8.3 mg/dL (8.5-10.5); Carbon Dioxide 24 mmol/L (22-29); Chloride 101 mmol/L (98-107); Globulin 2.5 g/dL (1.3-4.6); Glomerular Filtration Rate 98.3 mL/min (90-130); Glucose 108 mg/dL (65-115); Osmolality Calculated 284 mOsm/kg (285-295); Potassium 4.1 mmol/L (3.5-5.1); Sodium 137 mmol/L (136-145); Thyroid Stimulating Hormone 0.52 uIU/mL (0.27-4.20); Total Bilirubin 0.2 mg/dL (0.15-1.2); Total Protein 6.4 g/dL (6.6-8.7)
[2020-11-07 15:16] LABS: Acetaminophen < 5.0 ug/mL (10-30); Alcohol Level < 10 mg/dL (0-10); Salicylate < 0.3 mg/dL (3-10)
[2020-11-07 15:36] LABS: Glucose Urine UA Norm (Normal); HCG Qualitative Urine. Negative (Negative); Ketones Urine Negative (Negative); Protein Urine Neg (Negative); Specific Gravity, Urine 1.015 (1.005-1.030); Urine Appearance Clear (CLEAR); Urine Color Straw (Yellow); pH Urine 7 (5-7)
[2020-11-07 15:37] LABS: Add Urine Microscopic? YES; Bilirubin Urine Neg (Negative); Blood Urine Trace (Negative); Leukocyte Esterase Urine Negative (Negative); Nitrate Urine Negative (Negative); Urobilinogen Urine 1 mg/dL (Negative)
[2020-11-07 15:42] LABS: RBC Urine 0-4 /hpf (0-2); WBC Urine 0-4 /hpf (0-5)
[2020-11-07 15:43] LABS: Add Urine Culture? No; Squamous Epithelial Cell Urine 0-4 /hpf (0-5)
[2020-11-07 15:52] LABS: Amphetamines Screen Urine Negative (Negative); Barbiturates Screen Urine Negative (Negative); Benzodiazepines Screen Urine Negative (Negative); Cocaine Screen Urine Negative (Negative); Opiate Screen Urine Negative (Negative); PCP Screen Urine Negative (Negative); THC Screen Urine Negative (Negative)
[2020-11-07 16:22] VITALS: BP 164/97; PULSE 87; RESP 16; O2SAT 98
[2020-11-07] MEDS: OLANZapine 5 mg ODT PO (17:03)
[2020-11-07] MEDS: lisinopril 10 mg Tablet PO (17:03)
[2020-11-07] MEDS: nicotine 2 mg Gum BUCCAL (17:03)
--- NOTE | 2020-11-07 17:06 | PC.NURSE ---
prn 1650 administered zydis for anxiety and riki gum, will continue to monitor
--- NOTE | 2020-11-07 17:09 | PC.NURSE ---
PRN Zyprexa Zydis Patient was anxious on arrival to unit. Given 5 mg Zyprexa Zydis po.
[2020-11-07 17:18] LABS: Basophils % 0.1 %; Hematocrit 46.7 % (37.0-47.0); Hemoglobin 15.9 g/dL (11.5-15.3); Lymphocytes # 2.7 10^3/uL (0.8-4.8); Lymphocytes % 12.3 %; Mean Corpuscular Hemoglobin 30.3 pg (28.0-34.0); Mean Platelet Volume 9.7 fL (7.4-10.4); Monocytes # 0.6 10^3/uL (0.2-0.9); Monocytes % 2.6 %; Neutrophils # 18.18 10^3/uL (1.8-7.7); Neutrophils % 84.4 %; Nucleated Red Blood Cells % 0 %; Platelet Count 389 10^3/cmm (130-400); Red Blood Count 5.25 10^6/uL (4.1-5.3); Red Cell Distribution Width 13.9 % (12.1-15.1); White Blood Count 21.6 10^3/uL (4.0-10.0)
[2020-11-07 18:39] VITALS: BP 136/86
--- NOTE | 2020-11-07 19:00 | PM.CONSULT ---
Providers/Reason For Consult Consulting Physician/Specialty*: Reji Lan MD/Internal medicine Reason for Consult*: Leukocytosis Attending Physician: Tristen De La Vega DO History of Present Illness History of Present Illness Naida Bentley is a 30 year old female with no significant past medical history came into the ER with chief complaint of suicidal ideation. Patient states that she has had issues with depression since the age of 4 and has been in and out of therapy for the same. Medicine was consulted for leukocytosis of 20,000.Upon further discussion with the patient, it was found that she had upper respiratory symptoms within the last week for which she was prescribed a steroid as an outpatient.Currently she denies any chest pain, shortness of breath, fever, any abdominal pain nausea vomiting, any urinary symptoms, any sick contact. Pertinent labs: WBC:21.6, urinalysis clean. X-ray chest: Clean Review of Systems Const: Denies: fever(s), chills, body aches, change in appetite or diaphoresis Card: Denies: palpitations, edema, swelling of feet/ankles, dyspnea on exertion, orthopnea or leg pain with exertion Resp: Denies: dyspnea, wheezing or pain on inspiration GI: Denies: abdominal pain, nausea, vomiting, diarrhea or constipation : Denies: flank pain Musc: Denies: back pain, extremity pain or extremity swelling Neuro: Denies: headache(s), difficulty walking or confusion Meds/Allergies Home Medications and Allergies Home Medications Medication Instructions Recorded Confirmed Last Taken Type dexamethasone 6 mg PO DAILY #3 tab 11/05/20 11/07/20 11/07/20 Rx guaifenesin [Mucinex] 600 mg PO Q12H PRN 11/07/20 11/07/20 11/07/20 History Allergies Allergy/AdvReac Type Severity Reaction Status Date / Time No Known Allergies Allergy Verified 11/05/20 21:20 Current Medications Current Medications Generic Name Dose Route Start Last Admin Trade Name Freq PRN Reason Stop Dose Admin Nicotine Polacrilex 2 mg 11/07/20 16:14 11/07/20 17:03 Nicotine 2 Mg Gum BUCCAL 2 mg Q2H PRN Administration NICOTINE WITHDRAWAL Olanzapine 5 mg 11/07/20 16:14 11/07/20 17:03 Olanzapine 5 Mg Odt PO 5 mg Q4H PRN Administration Agitation/Psychosis PFSH Acute PFSH: Social History Smoking and tobacco status: current every day smoker cigarettes Packs smoked per day: 0.5 Alcohol intake: current Alcohol intake frequency: 0-2 Drinks per Day Substance/Drug Use: current Substance/Drug use frequency: Special occassions/opportunity only Substance/Drug use type: Marijuana Female Reproductive History: Date of last menstrual period: 10/24/20 Vitals/I&O/Wt Last Vital Signs Temp 97.7 F 11/07/20 13:33 Pulse 87 11/07/20 16:22 Resp 16 11/07/20 16:22 BP 136/86 11/07/20 18:39 Pulse Ox 98 11/07/20 16:22 Weight last 48 hrs Weight 122.47 kg Physical Exam Const: COMMON NORMALS: patient oriented x3 HENMT: COMMON NORMALS: normocephalic and atraumatic HEAD & SCALP: normocephalic and atraumatic Chest: CHEST: Yes Symmetrical chest wall rise Resp: COMMON NORMALS: normal respiratory effort and clear to auscultation bilaterally EFFORT & INSPECTION: Yes symmetric chest movement AUSCULTATION: clear to auscultation bilaterally Cardio: COMMON NORMALS: regular rate, regular rhythm, S1 normal heart sound present, S2 normal heart sound present, No gallops present (Cardio), No murmurs present (Cardio), No rub (Cardio) and Peripheral pulses 2+ throughout RATE: regular rate RHYTHM: regular rhythm HEART SOUNDS: S1 normal heart sound present and S2 normal heart sound present PERIPHERAL PULSES: Peripheral pulses 2+ throughout GI: COMMON NORMALS: Normal to inspection, nondistended, normoactive bowel sounds present, Soft to palpation, non-tender, No hepatosplenomegaly present and no masses AUSCULTATION: Yes normoactive bowel sounds PALPATION: Yes Soft to palpation and Yes No hepatosplenomegaly present RECTAL EXAM: deferred Extremity: COMMON NORMALS: no clubbing, cyanosis or edema and no pedal edema Neuro: COMMON NORMALS: patient oriented x3 A&P Assessment and plan (1) Leukocytosis: Leukocytosis likely secondary to steroid use: Monitor CBC Lactic acid Procalcitonin. No current indication for antibiotic. Status: Acute (2) Depression: Status: Acute (3) Suicidal ideation: Status: Acute Consult Attestations Medical Necessity Statement: Per primary team Coding Level of Care Code Acute [employer] Team Member for Chg Fwd Exam Detailed Diagnoses Leukocytosis D72.829 Depression F32.9 Suicidal ideation R45.851
[2020-11-07 21:35] VITALS: BP 115/82; PULSE 86; RESP 20; TEMP 36.5; O2SAT 98
[2020-11-08 05:56] VITALS: BP 171/91; PULSE 62; RESP 20; TEMP 36.7; O2SAT 95
[2020-11-08 06:29] LABS: Basophils % 0.2 %; Eosinophils % 0.1 %; Hematocrit 45.6 % (37.0-47.0); Hemoglobin 15.3 g/dL (11.5-15.3); Lymphocytes # 4.1 10^3/uL (0.8-4.8); Lymphocytes % 21.4 %; Mean Corpuscular HGB Conc 33.6 g/dL (30.0-36.0); Mean Corpuscular Hemoglobin 30.1 pg (28.0-34.0); Mean Corpuscular Volume 89.6 fL (81-99); Mean Platelet Volume 9.8 fL (7.4-10.4); Neutrophils # 14.04 10^3/uL (1.8-7.7); Neutrophils % 72.7 %; Nucleated Red Blood Cells % 0 %; Platelet Count 356 10^3/cmm (130-400); Red Blood Count 5.09 10^6/uL (4.1-5.3); White Blood Count 19.3 10^3/uL (4.0-10.0)
[2020-11-08 06:47] LABS: Lactate (Lactic Acid level) 1.3 mmol/L (0.5-2.2)
[2020-11-08 06:53] LABS: Procalcitonin 0.02 ng/mL (0-0.5)
[2020-11-08] MEDS: lisinopril 10 mg Tablet PO (08:25)
--- NOTE | 2020-11-08 10:26 | P.HP_ITS ---
Providers/Chief Complaint Admitting Physician: Tristen De La Vega DO Chief Complaint: SI HPI NPU History of Present Illness Naida Bentley is a 30 year old female with reported history of intermittent depressive symptoms since age 4 and recent upper respiratory infection being treated with steroids presented to the emergency department with complaint of worsening depressive symptoms and suicidal ideation over the past month. Patient currently denying any suicidal ideation but reports ongoing depressive symptoms causing significant impairment. Patient reports decreased energy and interest in her usual activities, low motivation. She denies any history of suicide attempts or self-harm behavior. She denies any auditory or visual hallucinations or any delusions. Reports excessive worry and difficulty controlling her worrying which is exacerbated by ongoing stressors, denies any panic symptoms or panic attacks. She denies any past or recent manic or hypomanic episodes. Patient reports remote history of counseling/therapy greater than 10 years ago but denies ever being treated with medication for her depressive symptoms. Patient reports occasional marijuana use, occasional alcohol use. Patient reports multiple ongoing stressors to include financial stressors. Review of Systems General: Reports: 10 or more systems reviewed and unremarkable except in HPI and below Meds NPU Home Medications Medication Instructions Recorded Confirmed Last Taken Type dexamethasone 6 mg PO DAILY #3 tab 11/05/20 11/07/20 11/07/20 Rx guaifenesin [Mucinex] 600 mg PO Q12H PRN 11/07/20 11/07/20 11/07/20 History Allergies Allergy/AdvReac Type Severity Reaction Status Date / Time No Known Allergies Allergy Verified 11/05/20 21:20 PFSH NPU PFSH: Social History Smoking and tobacco status: current every day smoker cigarettes Packs smoked per day: 0.5 Alcohol intake: current Alcohol intake frequency: 0-2 Drinks per Day Substance/Drug Use: current Substance/Drug use frequency: Special occassions/opportunity only Substance/Drug use type: Marijuana Other Psychiatric History: Other Psychiatric History: Per above, reports remote history of counseling/therapy but denies any past treatment by psychiatrist Denies any history of psychiatric hospitalization Denies any history of suicide attempt or self-harm behavior Mental Status Exam MSE Comments: Lying in bed but subsequently sits up for interview, calm, cooperative, polite, interactive, obese, appropriately dressed in hospital scrubs, tired appearing Psychomotor activity is somewhat decreased, no agitation Speech is low volume, normal rate, spontaneous, clear to condition, not pressured I feel depressed, constricted affect, not labile Alert, oriented to person, place, time, situation Memory and concentration appear to be fair to intact per interview Intellectual functioning appears to be average per vocabulary, interview Thought process, linear, no flight of ideas, no looseness of associations Thought content, no delusions, no hallucinations, no suicidal or homicidal ideation Insight and judgment appear to be intact Vitals/I&O/Wt Last Vital Signs Temp 98.0 F 11/08/20 05:56 Pulse 62 11/08/20 05:56 Resp 20 H 11/08/20 05:56 BP 171/91 11/08/20 05:56 Pulse Ox 95 11/08/20 05:56 Weight last 48 hrs Weight 122.47 kg Data NPU : 11/08/20 06:10 11/07/20 14:16 A&P Assessment and plan (1) Suicidal ideation: Status: Acute (2) Depression: Status: Acute Qualifiers: Depression Type: unspecified Qualified Code(s): F32.9 - Major depressive disorder, single episode, unspecified (3) URI (upper respiratory infection): Status: Acute Qualifiers: Pharyngitis/tonsillitis etiology: unspecified etiology URI type: acute pharyngitis Qualified Code(s): J02.9 - Acute pharyngitis, unspecified (4) Leukocytosis: Status: Acute Additional A&P Information Patient continues to report ongoing depressive symptoms causing significant impairment, currently denying suicidal ideation but reports recent worsening of suicidal ideation over the past month. Patient with recent upper respiratory infection, treated with steroids, elevated white count which is trending down VOLUNTARY ADMIT to inpatient psychiatry START Lexapro 10 mg daily targeting depressive symptoms Appreciate hospitalist consult CONTINUE lisinopril 10 mg daily Encouraged patient to participate in unit activities to include group sessions, unit milieu Coordinate with social welfare administrator for post discharge mental health and primary care follow-up Attestations NPU Medical Necessity Statement*: Psychiatric hospitalization is indicated for medication stabilization, coordination for safe discharge Anticipate hospital stay to exceed 2 midnights Coding Level of Care Code Acute Tea Taster for [facility] Fwd Diagnoses Suicidal ideation R45.851 Depression F32.9 Depression Type: unspecified URI (upper respiratory infection) J02.9 Pharyngitis/tonsillitis etiology: unspecified etiology URI type: acute pharyngitis Leukocytosis D72.829
[2020-11-08] MEDS: escitalopram 10 mg Tablet PO (10:52)
[2020-11-08 14:00] VITALS: BP 152/81; PULSE 62; RESP 20; TEMP 36.7; O2SAT 95
[2020-11-08] MEDS: nicotine 2 mg Gum BUCCAL (16:38)
[2020-11-08] MEDS: OLANZapine 5 mg ODT PO ×2 (16:38→20:34)
--- NOTE | 2020-11-08 20:44 | PC.NURSE ---
The patient is restless, somewhat irritable. She specifically requested the Zyprexa 5 mg po. She said the Zyprexa is the only med that helps her calm down.
[2020-11-08 21:43] VITALS: BP 114/81; PULSE 55; RESP 18; TEMP 36.6; O2SAT 97
--- NOTE | 2020-11-08 22:13 | PC.NURSE ---
In bed sleeping.
[2020-11-09 06:00] VITALS: BP 157/97; PULSE 67; RESP 18; TEMP 36.3; O2SAT 96
[2020-11-09 06:31] LABS: Basophils % 0.2 %; Eosinophils % 0.2 %; Hematocrit 43.7 % (37.0-47.0); Hemoglobin 14.4 g/dL (11.5-15.3); Lymphocytes # 4.9 10^3/uL (0.8-4.8); Lymphocytes % 27.9 %; Mean Corpuscular Hemoglobin 29.9 pg (28.0-34.0); Mean Corpuscular Volume 90.7 fL (81-99); Mean Platelet Volume 9.6 fL (7.4-10.4); Monocytes # 1.1 10^3/uL (0.2-0.9); Monocytes % 6.1 %; Neutrophils # 11.37 10^3/uL (1.8-7.7); Neutrophils % 64.9 %; Nucleated Red Blood Cells % 0 %; Platelet Count 322 10^3/cmm (130-400); Red Blood Count 4.82 10^6/uL (4.1-5.3); Red Cell Distribution Width 14.1 % (12.1-15.1); White Blood Count 17.5 10^3/uL (4.0-10.0)
[2020-11-09] MEDS: escitalopram 10 mg Tablet PO ×2 (09:02→10:30)
[2020-11-09] MEDS: lisinopril 10 mg Tablet PO (09:02)
--- NOTE | 2020-11-09 09:52 | PM.NDC ---
Diagnoses at Discharge Discharge Diagnosis (1) Suicidal ideation: Status: Acute (2) Depression: Status: Acute Qualifiers: Depression Type: unspecified Qualified Code(s): F32.9 - Major depressive disorder, single episode, unspecified (3) URI (upper respiratory infection): Status: Acute Qualifiers: Pharyngitis/tonsillitis etiology: unspecified etiology URI type: acute pharyngitis Qualified Code(s): J02.9 - Acute pharyngitis, unspecified (4) Leukocytosis: Status: Acute Reason for Visit Reason for Visit: SI Hospital Course Hospital Course 30 year old female with reported history of intermittent depressive symptoms since age 4 and recent upper respiratory infection being treated with steroids presented to the emergency department with complaint of worsening depressive symptoms and suicidal ideation over the past month. She continued to deny any suicidal ideation at the time of initial evaluation but stated she was having worsening impairment secondary to her depressive symptoms off of medication. Patient was started on Lexapro which was titrated up to Lexapro 20 mg daily which she tolerated well with no reports of any medication side effects. Patient mostly lying in bed although complained about not having enough groups during her inpatient stay and reported that she would like to transition to outpatient care for follow on individual therapy and medication management. Patient was not suicidal and was not endorsing any psychiatric symptoms at the time of discharge and did not appear to pose an imminent threat of harm to self or others. Of note, patient did have an elevated white count at the time of admission at which time the hospitalist was consulted and determined that her white count was elevated secondary to her recent and ongoing treatment with a steroid. Her white count was downtrending at the time of discharge and patient had no active URI complaints. Low to moderate risk of harm to self given no current suicidal ideation, no past suicide attempts, no history of self-harm behavior although risk may be elevated if she continues to use cannabis or other substances or is noncompliant with medication and medication management follow-up leading to unexpected, impulsive behavior. Risk medication including psychiatric hospitalization, medication stabilization, coordination for safe discharge with mental health care follow-up to include therapy targeting the development of more adaptive coping strategies. Patient was able to communicate her understanding of the need to follow-up with her primary care to monitor her URI symptoms and WBC count as well as need for compliance with her psychotropic medication, medication management and therapy in order to further mitigate her risk of harm to self and others. Mental Status Exam MSE Comments: Sitting up on her bed, polite, interactive, obese, appropriately dressed in hospital scrubs, good eye contact Psychomotor activity is neither increased nor decreased, no agitation Speech is normal volume, normal rate, spontaneous, clear articulation, not pressured I feel better, full range of affect, not labile Alert, oriented to person, place, time, situation Memory and concentration appear to be fair to intact per interview Thought process, linear, no flight of ideas, no looseness of associations Thought content, no delusions, no hallucinations, no suicidal or homicidal ideation Insight and judgment appear to be intact Discharge Data Data Completed and Pending: Completed Studies During Hospitalization Category Date Time Status XR chest 1V [place] [id number] Stat Exams 11/07/20 14:26 Completed Pending at discharge Category Date Time Status Complete Blood Co unt w/Auto AM LABS Lab 11/10/20 04:00 Ordered Labs from last 24 hours 11/09/20 06:18 WBC 17.5 H RBC 4.82 Hgb 14.4 Hct 43.7 MCV 90.7 MCH 29.9 MCHC 33.0 RDW 14.1 Plt Count 322 MPV 9.6 Neut % (Auto) 64.9 Lymph % (Auto) 27.9 [place] % (Auto) 6.1 Eos % (Auto) 0.2 Baso % (Auto) 0.2 Neut # (Auto) 11.37 H Lymph # (Auto) 4.9 H [place] # (Auto) 1.1 H Eos # (Auto) 0.0 Baso # (Auto) 0.0 Nucleated RBC % (a uto) 0 Nucleated RBCs # 0.0 Vitals: Last Vital Signs Temp 97.3 F L 11/09/20 06:00 Pulse 67 11/09/20 06:00 Resp 18 11/09/20 06:00 BP 157/97 11/09/20 06:00 Pulse Ox 96 11/09/20 06:00 Discharge Plan Discharge Patient Disposition: Home Condition: Stable Prescriptions: New escitalopram oxalate 10 mg Tablet 20 mg PO DAILY Qty: 30 RF: 0 Continued dexamethasone 6 mg tablet 6 mg PO DAILY Qty: 3 RF: 0 Mucinex 600 mg Tablet Extended Release 12hr 600 mg PO Q12H PRN (Reason: Congestion) RF: 0 Discharge Orders: Discharge Order (Routine); Ordered 11/09/20 Ordered By: Tristen De La Vega Referrals: [facility] [Outside] Discharge Diet: Usual diet Discharge Activity: Resume usual activity Patient Instructions: Opioid Safety Discharge Attestations NPU Time Spent in Discharge Care*: greater than 30 min Status at Discharge: Cognitive status at discharge: cognitively intact, Behavioral status at discharge: cooperative, Functional status at discharge: independent ambulation Overall status at discharge: patient is back to baseline Coding Level of Care Code Acute Chg [facility] note Diagnoses Suicidal ideation R45.851 Depression F32.9 Depression Type: unspecified URI (upper respiratory infection) J02.9 Pharyngitis/tonsillitis etiology: unspecified etiology URI type: acute pharyngitis Leukocytosis D72.829
[2020-11-09 10:08] VITALS: BP 157/97; PULSE 67; RESP 18; TEMP 36.3; O2SAT 96
--- NOTE | 2020-11-09 10:30 | P.PN_ITS ---
Subjective Subjective: Interval history: Patient was complaining of dry cough, with occasional whitish sputum. Denied any fever, chest pain, nausea vomiting, abdominal pain, urinary complaints. WBC count is trending down, lactic acid and procalcitonin normal. Vitals/I&O/Wt Last Vital Signs Temp 97.3 F L 11/09/20 10:08 Pulse 67 11/09/20 10:08 Resp 18 11/09/20 10:08 BP 157/97 11/09/20 10:08 Pulse Ox 96 11/09/20 10:08 Weight last 48 hrs Weight 122.47 kg Physical Exam Const: COMMON NORMALS: patient oriented x3 HENMT: COMMON NORMALS: normocephalic and atraumatic HEAD & SCALP: normocephalic and atraumatic Chest: CHEST: Yes Symmetrical chest wall rise Resp: COMMON NORMALS: normal respiratory effort and clear to auscultation bilaterally EFFORT & INSPECTION: Yes symmetric chest movement AUSCULTATION: clear to auscultation bilaterally Cardio: COMMON NORMALS: regular rate, regular rhythm, S1 normal heart sound present, S2 normal heart sound present, No gallops present (Cardio), No murmurs present (Cardio), No rub (Cardio) and Peripheral pulses 2+ throughout RATE: regular rate RHYTHM: regular rhythm HEART SOUNDS: S1 normal heart sound present and S2 normal heart sound present PERIPHERAL PULSES: Peripheral pulses 2+ throughout GI: COMMON NORMALS: Normal to inspection, nondistended, normoactive bowel sounds present, Soft to palpation, non-tender, No hepatosplenomegaly present and no masses AUSCULTATION: Yes normoactive bowel sounds PALPATION: Yes Soft to palpation and Yes No hepatosplenomegaly present RECTAL EXAM: deferred Extremity: COMMON NORMALS: no clubbing, cyanosis or edema and no pedal edema Neuro: COMMON NORMALS: patient oriented x3 Data : 11/09/20 06:18 11/07/20 14:16 A&P Assessment and plan (1) Leukocytosis: Leukocytosis likely secondary to steroid use:Improving Monitor CBC Lactic acid:Normal Procalcitonin.Normal Status: Acute (2) Acute bronchitis: Acute bronchitis likely secondary to smoking: Azithromycin to 250 mg p.o. daily for 5 days. Status: Acute (3) Depression: Status: Acute Qualifiers: Depression Type: unspecified Qualified Code(s): F32.9 - Major depressive disorder, single episode, unspecified (4) Suicidal ideation: Status: Acute Additional A&P Information Patient is currently doing fine, safe to be discharged from medicine standpoint. Please call us with questions. 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
[2020-11-09] MEDS: azithromycin 250 mg Tablet 500 MG PO (11:10)
--- NOTE | 2020-11-09 15:24 | PC.RESP ---
Smoking Cessation information sent to patient.
== END 2020-11-09 11:15 | disposition home or self-care (01) | DRG 881 ==
LOC: ER 14:54 → NP 15:11
PROVIDERS: Internal Medicine; Admitting Provider Psychiatry & Neurology Psychiatry; Emergency Provider Emergency Medicine; Visit Provider Psychiatry & Neurology Psychiatry
DX: F32.9 Major depressive disorder, single episode, unspecified (principal); R45.851 Suicidal ideations; F17.210 Nicotine dependence, cigarettes, uncomplicated; F12.90 Cannabis use, unspecified, uncomplicated; T38.0X5A Adverse effect of glucocorticoids and synthetic analogues, initial encounter; D72.829 Elevated white blood cell count, unspecified; J02.9 Acute pharyngitis, unspecified; J20.9 Acute bronchitis, unspecified
CPT/HCPCS: 36415; 71045; 80053; 80306; 80307; 81001; 81025; 83605; 84145; 84443; 85025; 93005; 99285; G0378; Q0144

== ENCOUNTER → 2021-07-22 11:00 | Outpatient (BNVA) | payer BC, SELFPAY | PROVIDERS: Visit Provider Psychiatry & Neurology Psychiatry | DX: F41.1 Generalized anxiety disorder (principal); F33.2 Major depressive disorder, recurrent severe without psychotic features; F10.21 Alcohol dependence, in remission; F17.210 Nicotine dependence, cigarettes, uncomplicated | CPT/HCPCS: 99214 ==

== ENCOUNTER → 2021-07-23 10:09 | Outpatient (BNVA) | payer BC, MEDICAID, SELFPAY | PROVIDERS: Visit Provider Nurse Practitioner Family | DX: I10 Essential (primary) hypertension (principal); Z11.3 Encounter for screening for infections with a predominantly sexual mode of transmission; R30.0 Dysuria; F32.9 Major depressive disorder, single episode, unspecified | CPT/HCPCS: 80053; 80061; 81003; 82306; 82607; 84443; 85025; 87491; 87591; 87661 ==

== ENCOUNTER → 2021-07-30 15:00 | Outpatient (BNVA) | payer BC, SELFPAY | PROVIDERS: Visit Provider Social Worker | DX: F41.1 Generalized anxiety disorder (principal); F33.2 Major depressive disorder, recurrent severe without psychotic features; F10.21 Alcohol dependence, in remission; F17.210 Nicotine dependence, cigarettes, uncomplicated; F90.0 Attention-deficit hyperactivity disorder, predominantly inattentive type | CPT/HCPCS: 90837 ==

== ENCOUNTER → 2021-08-06 15:00 | Outpatient (BNVA) | payer BC, SELFPAY | PROVIDERS: Visit Provider Social Worker | DX: F41.1 Generalized anxiety disorder (principal); F33.2 Major depressive disorder, recurrent severe without psychotic features; F10.21 Alcohol dependence, in remission; F17.210 Nicotine dependence, cigarettes, uncomplicated; F90.0 Attention-deficit hyperactivity disorder, predominantly inattentive type | CPT/HCPCS: 90837 ==

== ENCOUNTER → 2021-08-12 11:43 | Outpatient (BNVA) | payer BC, SELFPAY | PROVIDERS: Visit Provider Social Worker | DX: F41.1 Generalized anxiety disorder (principal); F33.2 Major depressive disorder, recurrent severe without psychotic features; F10.21 Alcohol dependence, in remission; F17.210 Nicotine dependence, cigarettes, uncomplicated; F90.0 Attention-deficit hyperactivity disorder, predominantly inattentive type | CPT/HCPCS: 90837 ==

== ENCOUNTER → 2021-08-13 10:02 | Outpatient (BNVA) | payer BC, SELFPAY | PROVIDERS: Visit Provider Nurse Practitioner Family | DX: R30.0 Dysuria (principal) | CPT/HCPCS: 87086 ==

== ENCOUNTER → 2021-08-19 12:39 | Outpatient (BNVA) | payer BC, SELFPAY | PROVIDERS: Visit Provider Social Worker | DX: F10.21 Alcohol dependence, in remission (principal); F17.210 Nicotine dependence, cigarettes, uncomplicated; F33.2 Major depressive disorder, recurrent severe without psychotic features; F41.1 Generalized anxiety disorder; F90.0 Attention-deficit hyperactivity disorder, predominantly inattentive type | CPT/HCPCS: 90837 ==

== ENCOUNTER → 2021-08-21 11:56 | Outpatient (BNVA) | payer BC, MEDICAID, SELFPAY | PROVIDERS: Visit Provider Nurse Practitioner Family | DX: Z11.3 Encounter for screening for infections with a predominantly sexual mode of transmission (principal); Z12.4 Encounter for screening for malignant neoplasm of cervix; R30.0 Dysuria | CPT/HCPCS: 81003; 87086; 87491; 87591; 87661; 88175 ==

== ENCOUNTER → 2021-08-26 14:42 | Outpatient (BNVA) | payer BC, SELFPAY | PROVIDERS: Visit Provider Social Worker | DX: F41.1 Generalized anxiety disorder (principal); F10.21 Alcohol dependence, in remission; F17.210 Nicotine dependence, cigarettes, uncomplicated; F33.2 Major depressive disorder, recurrent severe without psychotic features; F90.0 Attention-deficit hyperactivity disorder, predominantly inattentive type | CPT/HCPCS: 90834 ==

== ENCOUNTER → 2021-09-02 13:17 | Outpatient (BNVA) | payer BC, SELFPAY | PROVIDERS: Visit Provider Psychiatry & Neurology Psychiatry | DX: F41.1 Generalized anxiety disorder (principal); F33.2 Major depressive disorder, recurrent severe without psychotic features; F10.21 Alcohol dependence, in remission; F17.210 Nicotine dependence, cigarettes, uncomplicated; F90.0 Attention-deficit hyperactivity disorder, predominantly inattentive type | CPT/HCPCS: 90837; 99214 ==

== ENCOUNTER → 2021-09-06 15:12 | Outpatient (BNVA) | payer BC, MEDICAID, SELFPAY | PROVIDERS: PCP Nurse Practitioner Family; Visit Provider Nurse Practitioner Family | DX: R30.0 Dysuria (principal); N30.20 Other chronic cystitis without hematuria | CPT/HCPCS: 81000 ==

== ENCOUNTER 2021-09-08 20:56 | Emergency (ER) | payer BC, MEDICAID, SELFPAY ==
[2021-09-08 21:18] VITALS: BP 175/121; PULSE 107; RESP 18; TEMP 37.3; O2SAT 97; BMI 43.8
--- NOTE | 2021-09-08 22:52 | ED_ITS ---
HPI - Nausea/Vomiting/Diarrhea General: Chief complaint: Nausea/Vomiting/Diarrhea Stated complaint: Throwing up black stuff Time Seen by Provider: 09/08/21 22:16 History of Present Illness: Patient is a 31-year-old female comes to the ED with nausea and vomiting. Symptoms started 2 days ago. She has had multiple episodes of emesis with the past several days. She has not had any appetite today and has not eaten any food since yesterday. She has been able to drink some water but she is unable to keep it down for long. She endorses vomiting up some black looking bile today. States she has vomited approximately 8-9 times today. She endorses having some mild abdominal pain in her epigastric region. She rates the abdominal pain currently a 3 out of 10. Denies any fever, chills, chest pain, shortness of breath, diarrhea, constipation, blood in the stool. Associated nausea: Yes Associated symtoms: Reports nausea; Denies change in vision, chest pain, dysuria, fatigue, headache(s) or palpitations Review of Systems Const: Denies: fever(s), chills or fatigue Eyes: Denies: change in vision or eye discomfort ENMT: Denies: throat pain, odynophagia, nasal discharge or nasal congestion Card: Denies: chest pain, palpitations, edema, swelling of feet/ankles, dyspnea on exertion or orthopnea Resp: Denies: dyspnea, productive cough or non-productive cough GI: Reports: abdominal pain, nausea and vomiting; Denies: diarrhea, constipation or hematochezia : Denies: flank pain, dysuria or hematuria Musc: Denies: neck pain, back pain or extremity swelling Skin/Breast: Denies: rash or new lesions Neuro: Denies: headache(s), numbness in extremities or weakness in extremities PFSH ED PFSH: Medical History Psychiatric care Surgical History History of tonsillectomy and adenoidectomy History of wisdom tooth extraction Social History Smoking and tobacco status: current every day smoker cigarettes Packs smoked per day: 0.25 Years cigarettes smoked: 16 Quit status (tobacco): has tried quititng Number of times tried to quit tobacco: 2 Second hand smoke exposure: No Alcohol intake: current Alcohol intake frequency: 0-2 Drinks per Day Female Reproductive History: Date of last menstrual period: 10/24/20 Physical Exam Const: COMMON NORMALS: patient oriented x3 and alert GENERAL APPEARANCE: cooperative NUTRITIONAL APPEARANCE: obese HENMT: COMMON NORMALS: normocephalic HEAD & SCALP: normocephalic MOUTH: Normal oral and palatal mucosa present THROAT: posterior oropharynx normal and uvula midline Eye: COMMON NORMALS: Equal, round and reactive pupils present PUPIL: Yes Equal, round and reactive pupils present Neck/C-Spine: COMMON NORMALS: supple GENERAL: Yes normal visual inspection Resp: COMMON NORMALS: normal respiratory effort, No retractions, No use of accessory muscles and clear to auscultation bilaterally AUSCULTATION: clear to auscultation bilaterally Cardio: COMMON NORMALS: regular rate, regular rhythm, S1 normal heart sound present, S2 normal heart sound present, No gallops present (Cardio), No clicks present (Cardio), No murmurs present (Cardio) and Peripheral pulses 2+ throughout RATE: regular rate RHYTHM: regular rhythm HEART SOUNDS: S1 normal heart sound present and S2 normal heart sound present PERIPHERAL PULSES: Peripheral pulses 2+ throughout GI: COMMON NORMALS: Normal to inspection, nondistended, normoactive bowel sounds present, Soft to palpation and no masses INSPECTION: Yes central obesity PALPATION: Yes Soft to palpation and Yes Tenderness to palpation present (GI) Details: RUQ (Mild tenderness) and other (Mild tenderness in epigastric region) : COMMON NORMALS: Yes no CVA tenderness BLADDER/KIDNEY EXAM: Yes no CVA tenderness Back/Pelvis: COMMON NORMALS: no CVA tenderness Extremity: COMMON NORMALS: normal to inspection and no pedal edema Neuro: COMMON NORMALS: patient oriented x3 and moves all extremities SENSORIUM/ORIENTATION: Yes alert Skin: GENERAL SKIN EXAM: dry skin Course ED course: I ordered an ultrasound of patient's gallbladder due to her having some mild right upper quadrant tenderness and epigastric tenderness and the CT of the abdomen showing some gallstones present. Her nausea had been improving with IV fluids and Zofran and Reglan. She then got a call from her home and stated she needed to leave immediately. Ultrasound was present and she allowed them to perform the ultrasound but then wanted to leave immediately after. Patient would sign an AMA form since she was leaving before ultrasound report would be back. Vital Signs: Vital signs: Vital Signs Temperature 99.1 F 09/08/21 21:18 Pulse Rate 86 09/09/21 01:57 Respiratory Rate 18 09/09/21 01:57 Blood Pressure 151/98 09/09/21 01:57 Pulse Oximetry 97 09/09/21 01:57 MDM - Nausea/Vomiting/Diarrhea Medical Decision Making Patient is a 31-year-old female comes to the ED with some abdominal pain, nausea and vomiting. Symptoms of been going on for the past 2 days. Abdominal pain is located in the right upper quadrant and epigastric region. Vitals stable. Patient had some mild palpable tenderness over her right upper quadrant and epigastric region of the abdomen. Rest of exam is benign. White blood cell count 14.1 but the rest of CBC and CMP were unremarkable. Lipase normal. hCG negative and H. pylori read negative. UA showed no signs of infection. CT of abdomen pelvis showed enterocolitis and some gallstones. No other acute findings seen. Patient was given a liter of IV fluids, Zofran and Reglan and her symptoms did improve. Ultrasound gallbladder showed cholelithiasis but no signs of CBD obstruction or cholecystitis. She then got a call from her home and stated she needed to leave immediately. Ultrasound was present and she allowed them to perform the ultrasound but then wanted to leave immediately after. Patient would sign an AMA form since she was leaving before ultrasound report would be back. She was diagnosed with enterocolitis likely viral, and cholelithiasis. She was discharged home with a prescription for Reglan. She was told to follow-up with her PCP in the next week for reevaluation. Return to ED precautions given. Lab Data I reviewed the patient's lab results. : 09/08/21 22:51 09/08/21 22:51 Radiology Impressions Abdomen/Pelvis CT 09/08/21 23:21 IMPRESSION: 1. Prominent fluid in the small bowel and colon suggestive of an enterocolitis in the appropriate clinical setting. 2. Scattered prominent subcentimeter short axis mesenteric lymph nodes, nonspecific. 3. Cholelithiasis. Gallbladder Ultrasound 09/09/21 00:52 IMPRESSION: 1. Cholelithiasis, see additional details above. 2. The common bile duct could not definitely be visualized at this time, no obvious evidence for significant biliary tree dilation. 3. Other findings discussed above. Laboratory Results WBC 14.1 10^3/uL (4.0-10.0) H 09/08/21 22:51 RBC 5.46 10^6/uL (4.1-5.3) H 09/08/21 22:51 Hgb 16.5 g/dL (11.5-15.3) H 09/08/21 22:51 Hct 47.9 % (37.0-47.0) H 09/08/21 22:51 MCV 87.7 fl (81-99) 09/08/21 22:51 MCH 30.2 pg (28.0-34.0) 09/08/21: MCHC 34.4 g/dL (30.0-36.0) 09/08/21: RDW 13.3 % (12.1-15.1) 09/08/21 22:51 Plt Count 396 10^3/cmm (130-400) 09/08/21 22:51 MPV 9.5 fL (7.4-10.4) 09/08/21 22:51 Neut % (Auto) 70.6 % 09/08/21:51 Lymph % (Auto) 18.8 % 09/08/21:51 [place] % (Auto) 5.3 % 09/08/21 22:51 Eos % (Auto) 4.6 % 09/08/21:51 Baso % (Auto) 0.4 % 09/08/21:51 Neut # (Auto) 9.97 10^3/uL (1.8-7.7) H 09/08/21 22:51 Lymph # (Auto) 2.7 10^3/uL (0.8-4.8) 09/08/21 22:51 [place] # (Auto) 0.8 10^3/uL (0.2-0.9) 09/08/21 22:51 Eos # (Auto) 0.7 10^3/uL (0.0-0.8) 09/08/21 22:51 Baso # (Auto) 0.1 10^3/uL (0.0-0.1) 09/08/21 22:51 Nucleated RBC % (auto) 0 % 09/08/21 22: Nucleated RBCs # 0.0 /100WBC 09/08/21 22:51 Sodium 138 mmol/L (136-145) 09/08/21 22:51 Potassium 3.8 mmol/L (3.5-5.1) 09/08/21 22:51 Chloride 104 mmol/L (98-107) 09/08/21 22:51 Carbon Dioxide 19 mmol/L (22-29) L 09/08/21 22:51 Anion Gap 18.8 (5-19) 09/08/21 22:51 BUN 10 mg/dL (6-20) 09/08/21 22:51 Creatinine 0.6 mg/dL (0.5-0.9) 09/08/21: GFR Calculation 116.6 mL/min (90-130) 09/08/21 22: Glucose 108 mg/dL (65-115) 09/08/21 22: Calculated Osmolality 286 mOsm/kg (285-295) 09/08/21: Calcium 9.0 mg/dL (8.5-10.5) 09/08/21: Total Bilirubin 0.3 mg/dL (0.15-1.2) 09/08/21 22: AST 15 U/L (0-32) 09/08/21 22: ALT 31 U/L (0-33) 09/08/21 22: Alkaline Phosphatase 65 IU/L (35-105) 09/08/21 22: Total Protein 7.9 g/dL (6.6-8.7) 09/08/21: Albumin 4.3 g/dL (3.5-5.2) 09/08/21: Globulin 3.6 g/dL (1.3-4.6) 09/08/21 22: Lipase 19 U/L (13-60) 09/08/21 22: HCG, Qual Negative (Negative) 09/08/21 22:51 Urine Color Yellow (Yellow) 09/08/21 22:00 Urine Appearance Clear (CLEAR) 09/08/21 22:00 Urine pH 5 (5-7) 09/08/21 22:00 Ur Specific [place] 1.030 (1.005-1.030) 09/08/21 22:00 Urine Protein 1+ (Negative) H 09/08/21 22:00 Urine Glucose (UA) Norm (Normal) 09/08/21 22:00 Urine Ketones 2+ (Negative) H 09/08/21 22:00 Urine Blood Neg (Negative) 09/08/21 22:00 Urine Nitrate Negative (Negative) 09/08/21 22:00 Urine Bilirubin 1+ (Negative) H 09/08/21 22:00 Urine Urobilinogen 1 mg/dL (Negative) H 09/08/21 22:00 Ur Leukocyte Esterase Negative (Negative) 09/08/21 22:00 Urine RBC 0-4 /hpf (0-2) H 09/08/21 22:00 Urine WBC 0-4 /hpf (0-5) H 09/08/21 22:00 Ur Squamous Epith Cells 0-4 /hpf (0-5) H 09/08/21 22:00 Amorphous Sediment Not Reportable 09/08/21 22:00 Urine Bacteria Trace /hpf (NONE) 09/08/21 22:00 H. pylori IgG Antibody Negative (Negative) 09/08/21 22:51 Discharge Plan Discharge Patient Disposition: Home Clinical Impression: Enterocolitis Cholelithiasis Qualifiers: Cholelithiasis location: gallbladder Cholecystitis presence: without cholecystitis Biliary obstruction: without biliary obstruction Qualified Code(s): K80.20 - Calculus of gallbladder without cholecystitis without obstruction Condition: Stable Prescriptions: New Reglan 10 mg tablet 10 mg PO Q6H PRN (Reason: nausea and vomiting) Qty: 20 0RF No Action multivitamin Tablet 1 tab PO DAILY 0RF biotin 10,000 mcg capsule 10,000 mcg PO BID 0RF sertraline [Zoloft] 100 mg tablet 200 mg PO DAILY Qty: 60 2RF bupropion HCl [Wellbutrin XL] 150 mg tablet extended release 24 hr 150 mg PO QAM Qty: 30 2RF naltrexone 50 mg tablet 50 mg PO DAILY Qty: 30 2RF prazosin 5 mg capsule 5 mg PO .HS Qty: 30 2RF trazodone 100 mg tablet 200 mg PO .HS PRN (Reason: insomnia) Qty: 60 2RF ergocalciferol (vitamin D2) 1,250 mcg (50,000 unit) capsule 1,250 mcg PO .weekly Qty: 4 2RF lisinopril 20 mg tablet See Rx Instructions .ROUTE .COMPLEX Qty: 30 0RF Dose Instruction: Take 1 tablet by mouth once daily Rx Instructions: Take 1 tablet by mouth once daily fluconazole 150 mg tablet See Rx Instructions .ROUTE .COMPLEX Qty: 3 0RF Dose Instruction: TAKE ONE TABLET BY MOUTH EVERY 3 DAYS Rx Instructions: TAKE ONE TABLET BY MOUTH EVERY 3 DAYS loratadine [Claritin] 10 mg tablet 10 mg PO DAILY PRN (Reason: allergy symptoms) Qty: 30 2RF Discharge Orders: Discharge ED (Routine); Ordered 09/09/21 Ordered By: Nabil Nelson Referrals: Lauren Walsh, LAURY [Primary Care Provider] - Discharge Diet: Advance as tolerated and Clear Liquid Discharge Activity: Increase activity as tolerated Activity Restrictions/Additional Instructions: Follow-up with medical provider as directed in the next 3 to 5 days for reevaluation. Take medications as prescribed. Start with a clear liquid diet for the next 24 hours then advance diet as tolerated. Return to the ER or your medical provider if condition worsens. Please read and understand discharge instructions. Thank you for choosing [facility] for your healthcare needs today. Please realize this is an emergency room and that we are providing you with a medical screening exam and this may not be complete and all inclusive of all the testing and or work up that you may need to determine your ailment or severity of your illness. It is very important that you follow up as instructed or that you return to the Emergency Department should you have concerns or if your condition changes or worsens in any way. Coding Level of Care Code ED Conveyor Line [employer] for Cate Barnett Exam Comprehensive
[2021-09-08] MEDS: sodium chloride 0.9% 1,000 ML 999 ML IV (23:06)
[2021-09-08] MEDS: ondansetron 2 mg/ML SDV 2 mL 4 MG IVP (23:06)
[2021-09-08 23:10] LABS: Basophils # 0.1 10^3/uL (0.0-0.1); Basophils % 0.4 %; Eosinophils # 0.7 10^3/uL (0.0-0.8); Eosinophils % 4.6 %; Hematocrit 47.9 % (37.0-47.0); Hemoglobin 16.5 g/dL (11.5-15.3); Lymphocytes # 2.7 10^3/uL (0.8-4.8); Lymphocytes % 18.8 %; Mean Corpuscular HGB Conc 34.4 g/dL (30.0-36.0); Mean Corpuscular Hemoglobin 30.2 pg (28.0-34.0); Mean Corpuscular Volume 87.7 fl (81-99); Mean Platelet Volume 9.5 fL (7.4-10.4); Monocytes # 0.8 10^3/uL (0.2-0.9); Monocytes % 5.3 %; Neutrophils # 9.97 10^3/uL (1.8-7.7); Neutrophils % 70.6 %; Nucleated Red Blood Cells % 0 %; Platelet Count 396 10^3/cmm (130-400); Red Blood Count 5.46 10^6/uL (4.1-5.3); Red Cell Distribution Width 13.3 % (12.1-15.1); White Blood Count 14.1 10^3/uL (4.0-10.0)
[2021-09-08 23:14] VITALS: BP 144/109; PULSE 88; RESP 18; O2SAT 93
--- NOTE | 2021-09-08 23:21 | CTR_ITS ---
PROCEDURE INFORMATION: Exam: CT Abdomen And Pelvis With Contrast Exam date and time: 09/09/2021 12:07 AM Age: 31 years old Clinical indication: Abdominal pain; Patient HX: C/O epigastric pain w n/v x 2 days; Additional info: Abdominal pain (epigastric region) n/v TECHNIQUE: Imaging protocol: Computed tomography of the abdomen and pelvis with contrast. Radiation optimization: All CT scans at this facility use at least one of these dose optimization techniques: automated exposure control; mA and/or kV adjustment per patient size (includes targeted exams where dose is matched to clinical indication); or iterative reconstruction. Contrast material: OMNI 300; Contrast volume: 95 ml; Contrast route: INTRAVENOUS (IV); COMPARISON: CR XR chest 1V portable [id number] 11/07/2020 2:26 PM RADIATION DOSE METRICS: Total DLP (mGy-cm): 1963.69 FINDINGS: Liver: Normal. No mass. Gallbladder and bile ducts: Cholelithiasis. Pancreas: Normal. No ductal dilation. Spleen: Normal. No splenomegaly. Adrenal glands: Normal. No mass. Kidneys and ureters: Normal. No hydronephrosis. Stomach and bowel: Prominent fluid in the small bowel and colon suggestive of an enterocolitis in the appropriate clinical setting. Appendix: No evidence of appendicitis. Intraperitoneal space: Unremarkable. No free air. No significant fluid collection. Arteries: Unremarkable. No abdominal aortic aneurysm. Lymph nodes: Scattered prominent subcentimeter short axis mesenteric lymph nodes, nonspecific. Urinary bladder: Unremarkable as visualized. Reproductive: Unremarkable as visualized. Bones/joints: Unremarkable. No acute fracture. Soft tissues: Unremarkable. CT/CT abdomen pelvis w con* [id number] IMPRESSION: 1. Prominent fluid in the small bowel and colon suggestive of an enterocolitis in the appropriate clinical setting. 2. Scattered prominent subcentimeter short axis mesenteric lymph nodes, nonspecific. 3. Cholelithiasis.
[2021-09-08 23:28] LABS: HCG, Serum Qual Negative (Negative)
[2021-09-08 23:34] LABS: Protein Urine 1+ (Negative); Urine Appearance Clear (CLEAR); Urine Color Yellow (Yellow); pH Urine 5 (5-7)
[2021-09-08 23:35] LABS: Add Urine Culture? No; Add Urine Microscopic? YES; Bacteria Urine TRACE /hpf; Bilirubin Urine 1+ (Negative); Blood Urine Neg (Negative); Glucose Urine UA Norm (Normal); Ketones Urine 2+ (Negative); Leukocyte Esterase Urine Negative (Negative); Nitrate Urine Negative (Negative); RBC Urine 0-4 /hpf (0-2); Squamous Epithelial Cell Urine 0-4 /hpf (0-5); Urobilinogen Urine 1 mg/dL (Negative); WBC Urine 0-4 /hpf (0-5)
[2021-09-08 23:36] LABS: Alanine Aminotransferase 31 U/L (0-33); Albumin Level 4.3 g/dL (3.5-5.2); Alkaline Phosphatase 65 IU/L (35-105); Anion Gap 18.8 (5-19); Aspartate Amino Transferase 15 U/L (0-32); Blood Urea Nitrogen 10 mg/dL (6-20); Carbon Dioxide 19 mmol/L (22-29); Chloride 104 mmol/L (98-107); Globulin 3.6 g/dL (1.3-4.6); Glomerular Filtration Rate 116.6 mL/min (90-130); Glucose 108 mg/dL (65-115); Lipase 19 U/L (13-60); Osmolality Calculated 286 mOsm/kg (285-295); Potassium 3.8 mmol/L (3.5-5.1); Sodium 138 mmol/L (136-145); Total Bilirubin 0.3 mg/dL (0.15-1.2); Total Protein 7.9 g/dL (6.6-8.7)
[2021-09-08 23:39] LABS: H. Pylori IgG Antibody Negative (Negative)
[2021-09-09] MEDS: iohexol 300 mg/mL 100 mL Btl IV (00:07)
--- NOTE | 2021-09-09 00:52 | USR_ITS ---
PROCEDURE INFORMATION: Exam: US Abdomen, Limited; Right Upper Quadrant Exam date and time: 09/09/2021 1:48 AM Age: 31 years old Clinical indication: Abdominal tenderness and nausea and vomiting; Additional info: Epigastric and ruq tender, n/v TECHNIQUE: Imaging protocol: US abdomen. Real time ultrasound with image documentation. Limited exam focused on the right upper quadrant. COMPARISON: CT abdomen pelvis w con* [id number] 09/09/2021 12:07 AM FINDINGS: Liver: Visualized/included portions of the liver appear essentially unremarkable. Gallbladder: There is a 16-17 mm shadowing gallstone in the region the gallbladder neck. Borderline/mild gallbladder wall thickening, measuring up to about 3.5 mm. No definite pericholecystic fluid. The gallbladder does not appear abnormally distended at this time. Common bile duct: The common bile duct could not definitely be visualized at this time, no obvious evidence for significant biliary tree dilation. The earlier CT scan also showed no evidence for biliary tree dilation. Pancreas: The pancreas was not visualized/evaluated at this time. Right kidney: The right kidney was not visualized/evaluated at this time. US/US gall bladder [id number] IMPRESSION: 1. Cholelithiasis, see additional details above. 2. The common bile duct could not definitely be visualized at this time, no obvious evidence for significant biliary tree dilation. 3. Other findings discussed above.
[2021-09-09] MEDS: sodium chloride 0.9% 500 ML 999 ML IV (01:11)
[2021-09-09 01:12] VITALS: BP 140/110; PULSE 98; RESP 16; O2SAT 96
[2021-09-09] MEDS: metoclopramide 5 mg/mL SDV 2 mL 10 MG IVP (01:12)
--- NOTE | 2021-09-09 01:43 | PC.NURSE ---
Patient reports that she needs to leave, and she will follow up next week with her PCP she states that she is feeling better.
[2021-09-09 01:57] VITALS: BP 151/98; PULSE 86; RESP 18; O2SAT 97
== END 2021-09-09 01:59 | disposition home or self-care (01) ==
PROVIDERS: Emergency Medicine; Emergency Provider Physician Assistant; PCP Nurse Practitioner Family
DX: K52.9 Noninfective gastroenteritis and colitis, unspecified (principal); K80.20 Calculus of gallbladder without cholecystitis without obstruction; F17.210 Nicotine dependence, cigarettes, uncomplicated; Z53.29 Procedure and treatment not carried out because of patient's decision for other reasons
CPT/HCPCS: 74177; 76705; 80053; 81001; 83690; 84703; 85025; 86677; 96361; 96374; 96375; 99284; J2405; J2765; J7030; J7040; Q9967

== ENCOUNTER → 2021-09-09 14:42 | Outpatient (BNVA) | payer BC, MEDICAID, SELFPAY | PROVIDERS: PCP Nurse Practitioner Family; Visit Provider Social Worker | DX: F41.1 Generalized anxiety disorder (principal); F33.2 Major depressive disorder, recurrent severe without psychotic features; F10.21 Alcohol dependence, in remission; F17.210 Nicotine dependence, cigarettes, uncomplicated; F90.0 Attention-deficit hyperactivity disorder, predominantly inattentive type | CPT/HCPCS: 90837 ==

== ENCOUNTER 2021-09-10 17:41 | Emergency (ER) | payer BC, MEDICAID, SELFPAY ==
[2021-09-10 18:00] VITALS: BP 149/96; PULSE 85; RESP 16; TEMP 37.4; O2SAT 97; BMI 43.8
--- NOTE | 2021-09-10 19:04 | W.ED.ABDPA2 ---
Documented by User: LAURY Leyva 09/10/21 20:28 HPI - Abdominal Pain General: Chief Complaint: Abdominal Pain Stated Complaint: abdominal pain Time Seen by Provider: 09/10/21 19:00 History of Present Illness: Patient seen here 2 days ago diagnosed with gallstones. patient still having some right upper quadrant pain. Not been eating much. Was not given pain medication. Not able to get into the surgeon are her PCP. Associated Symptoms: Denies chills, fever(s), nausea and vomiting Related Data: Date of Last Menstrual Period: 10/24/20 Review of Systems Const: Denies: fever(s), chills or body aches Eyes: Denies: eye discomfort ENMT: Denies: throat pain Card: Denies: chest pain Resp: Denies: dyspnea GI: Reports: abdominal pain; Denies: nausea or vomiting Skin/Breast: Denies: rash Neuro: Denies: headache(s) Psych: Denies: depression or suicidal ideation PFS ED PFSH: Medical History Psychiatric care Surgical History History of tonsillectomy and adenoidectomy History of wisdom tooth extraction Social History Smoking and tobacco status: current every day smoker cigarettes Packs smoked per day: 0.25 Years cigarettes smoked: 16 Quit status (tobacco): has tried quititng Number of times tried to quit tobacco: 2 Second hand smoke exposure: No Alcohol intake: current Alcohol intake frequency: 0-2 Drinks per Day Female Reproductive History: Date of last menstrual period: 10/24/20 Physical Exam Const: COMMON NORMALS: no acute distress, patient oriented x3 and alert HENMT: COMMON NORMALS: normocephalic and external ears normal HEAD & SCALP: normocephalic EXTERNAL EAR: Yes external ears normal Eye: COMMON NORMALS: EOMs intact bilaterally Neck/C-Spine: COMMON NORMALS: no JVD Resp: COMMON NORMALS: normal respiratory effort and No use of accessory muscles Cardio: COMMON NORMALS: no JVD GI: INSPECTION: Yes normal to inspection Extremity: COMMON NORMALS: normal to inspection and full ROM Neuro: COMMON NORMALS: patient oriented x3 SENSORIUM/ORIENTATION: Yes alert Psych: COMMON NORMALS: mental status grossly normal Skin: COMMON NORMALS: no rashes or lesions noted GENERAL SKIN EXAM: no rashes or lesions noted Course Vital Signs: Vital signs: Vital Signs Temperature 99.4 F 09/10/21 18:00 Pulse Rate 85 09/10/21 18:00 Respiratory Rate 16 09/10/21 18:00 Blood Pressure 149/96 09/10/21 18:00 Pulse Oximetry 97 09/10/21 18:00 MDM - Abdominal Pain Medical Decision Making Patient history of cholelithiasis. Not able given to the surgeon yet even though is been 2 days. Patient will have appointment next week to discuss with possible elective gallbladder removal. Patient without pain medication requesting pain medication. Did discuss need proper diet while she is waiting. Laboratories studies negative for any significant change from 2 days ago. Lab Data : 09/10/21 19:17 09/10/21 19:17 Labs/Radiology: Laboratory Results WBC 10.8 10^3/uL (4.0-10.0) H 09/10/21 19:17 RBC 4.93 10^6/uL (4.1-5.3) 09/10/21 19:17 Hgb 14.8 g/dL (11.5-15.3) 09/10/21 19:17 Hct 43.5 % (37.0-47.0) 09/10/21 19:17 MCV 88.2 fl (81-99) 09/10/21 19:17 MCH 30.0 pg (28.0-34.0) 09/10/21 19:17 MCHC 34.0 g/dL (30.0-36.0) 09/10/21 19:17 RDW 13.2 % (12.1-15.1) 09/10/21 19:17 Plt Count 351 10^3/cmm (130-400) 09/10/21 19:17 MPV 9.5 fL (7.4-10.4) 09/10/21 19:17 Neut % (Auto) 49.3 % 09/10/21 19:17 Lymph % (Auto) 31.3 % 09/10/21 19:17 [place] % (Auto) 6.1 % 09/10/21 19:17 Eos % (Auto) 12.2 % 09/10/21 19:17 Baso % (Auto) 0.8 % 09/10/21 19:17 Neut # (Auto) 5.33 10^3/uL (1.8-7.7) 09/10/21 19:17 Lymph # (Auto) 3.4 10^3/uL (0.8-4.8) 09/10/21 19:17 [place] # (Auto) 0.7 10^3/uL (0.2-0.9) 09/10/21 19:17 Eos # (Auto) 1.3 10^3/uL (0.0-0.8) H 09/10/21 19:17 Baso # (Auto) 0.1 10^3/uL (0.0-0.1) 09/10/21 19:17 Nucleated RBC % (auto) 0 % 09/10/21 19:17 Nucleated RBCs # 0.0 /100WBC 09/10/21 19:17 Sodium 136 mmol/L (136-145) 09/10/21 19:17 Potassium 3.8 mmol/L (3.5-5.1) 09/10/21 19:17 Chloride 102 mmol/L (98-107) 09/10/21 19:17 Carbon Dioxide 21 mmol/L (22-29) L 09/10/21 19:17 Anion Gap 16.8 (5-19) 09/10/21 19:17 BUN 8 mg/dL (6-20) 09/10/21 19:17 Creatinine 0.6 mg/dL (0.5-0.9) 09/10/21 19:17 GFR Calculation 116.6 mL/min (90-130) 09/10/21 19:17 Glucose 96 mg/dL (65-115) 09/10/21 19:17 Calculated Osmolality 280 mOsm/kg (285-295) L 09/10/21 19:17 Calcium 9.3 mg/dL (8.5-10.5) 09/10/21 19:17 Total Bilirubin 0.2 mg/dL (0.15-1.2) 09/10/21 19:17 AST 24 U/L (0-32) 09/10/21 19:17 ALT 47 U/L (0-33) H 09/10/21 19:17 Alkaline Phosphatase 64 IU/L (35-105) 09/10/21 19: Total Protein 7.1 g/dL (6.6-8.7) 09/10/21 19: Albumin 4.2 g/dL (3.5-5.2) 09/10/21 19: Globulin 2.9 g/dL (1.3-4.6) 09/10/21 19: Lipase 35 U/L (13-60) 09/10/21 19: HCG, Qual Negative (Negative) 09/10/21 19: Urine Color Yellow (Yellow) 09/10/21 19: Urine Appearance Sl hazy (CLEAR) 09/10/21 19: Urine pH 5 (5-7) 09/10/21 19: Ur Specific [place] 1.025 (1.005-1.030) 09/10/21 19: Urine Protein 1+ (Negative) H 09/10/21 19: Urine Glucose (UA) Norm (Normal) 09/10/21: Urine Ketones 1+ (Negative) H 09/10/21 19: Urine Blood Neg (Negative) 09/10/21 19: Urine Nitrate Negative (Negative) 09/10/21 19: Urine Bilirubin 1+ (Negative) H 09/10/21 19: Urine Urobilinogen 1 mg/dL (Negative) H 09/10/21 19: Ur Leukocyte Esterase Trace (Negative) H 09/10/21 19:27 Urine RBC 0-4 /hpf (0-2) H 09/10/21 19:27 Urine WBC 0-4 /hpf (0-5) H 09/10/21 19: Ur Squamous Epith Cells 15-25 /hpf (0-5) H 09/10/21 19:27 Amorphous Sediment Not Reportable 09/10/21 19: Urine Bacteria 1+ /hpf (NONE) H 09/10/21: Urine Mucus 2+ /hpf 09/10/21 19: Discharge Plan Discharge Patient Disposition: Home Clinical Impression: Cholelithiasis Condition: Stable Prescriptions: New tramadol 50 mg tablet 50 mg PO TID PRN (Reason: pain) Qty: 14 0RF Held naltrexone 50 mg tablet 50 mg PO DAILY Qty: 30 2RF Hold Instructions: Resume on 09/17/21. hold while taking pain med No Action multivitamin Tablet 1 tab PO DAILY 0RF biotin 10,000 mcg capsule 10,000 mcg PO BID 0RF sertraline [Zoloft] 100 mg tablet 200 mg PO DAILY Qty: 60 2RF bupropion HCl [Wellbutrin XL] 150 mg tablet extended release 24 hr 150 mg PO QAM Qty: 30 2RF prazosin 5 mg capsule 5 mg PO .HS Qty: 30 2RF trazodone 100 mg tablet 200 mg PO .HS PRN (Reason: insomnia) Qty: 60 2RF ergocalciferol (vitamin D2) 1,250 mcg (50,000 unit) capsule 1,250 mcg PO .weekly Qty: 4 2RF lisinopril 20 mg tablet See Rx Instructions .ROUTE .COMPLEX Qty: 30 0RF Dose Instruction: Take 1 tablet by mouth once daily Rx Instructions: Take 1 tablet by mouth once daily fluconazole 150 mg tablet See Rx Instructions .ROUTE .COMPLEX Qty: 3 0RF Dose Instruction: TAKE ONE TABLET BY MOUTH EVERY 3 DAYS Rx Instructions: TAKE ONE TABLET BY MOUTH EVERY 3 DAYS loratadine [Claritin] 10 mg tablet 10 mg PO DAILY PRN (Reason: allergy symptoms) Qty: 30 2RF Reglan 10 mg tablet 10 mg PO Q6H PRN (Reason: nausea and vomiting) Qty: 20 0RF Discharge Orders: Discharge ED (Routine); Ordered 09/10/21 Ordered By: Richard Miguel Referrals: Lauren Walsh FNP [Primary Care Provider] - Discharge Diet: As Directed and Low Fat Discharge Activity: Resume usual activity Patient Instructions: Gallstones (ED), Opioid Safety Activity Restrictions/Additional Instructions: Follow-up with medical provider as directed. Take medications as prescribed. Return to the ER or your medical provider if condition worsens. Please read and understand discharge instructions. If any questions ask please. Coding Level of Care Code ED Front End Loader Driver for Chg Fwd Exam Comprehensive Documented by User: Guzman Muhammad MD 09/10/21 21:22 HPI - Abdominal Pain General: Chief Complaint: Abdominal Pain Stated Complaint: abdominal pain Time Seen by Provider: 09/10/21 19:00 COUNTS INCLUDE 234 BEDS AT THE [facility] ED PFSH: Medical History Psychiatric care Surgical History History of tonsillectomy and adenoidectomy History of wisdom tooth extraction Social History Smoking and tobacco status: current every day smoker cigarettes Packs smoked per day: 0.25 Years cigarettes smoked: 16 Quit status (tobacco): has tried quititng Number of times tried to quit tobacco: 2 Second hand smoke exposure: No Alcohol intake: current Alcohol intake frequency: 0-2 Drinks per Day Course Vital Signs: Vital signs: Vital Signs Temperature 99.4 F 09/10/21 18:00 Pulse Rate 85 09/10/21 18:00 Respiratory Rate 16 09/10/21 18:00 Blood Pressure 149/96 09/10/21 18:00 Pulse Oximetry 97 09/10/21 18:00 MDM - Abdominal Pain Medical Decision Making Patient history of cholelithiasis. Not able given to the surgeon yet even though is been 2 days. Patient will have appointment next week to discuss with possible elective gallbladder removal. Patient without pain medication requesting pain medication. Did discuss need proper diet while she is waiting. Laboratories studies negative for any significant change from 2 days ago. I have reviewed this documentation by Richard Miguel NP. Guzman Muhammad MD Emergency Medicine Lab Data : 09/10/21 19:17 09/10/21 19:17 Labs/Radiology: Laboratory Results WBC 10.8 10^3/uL (4.0-10.0) H 09/10/21 19:17 RBC 4.93 10^6/uL (4.1-5.3) 09/10/21 19:17 Hgb 14.8 g/dL (11.5-15.3) 09/10/21 19:17 Hct 43.5 % (37.0-47.0) 09/10/21 19:17 MCV 88.2 fl (81-99) 09/10/21 19:17 MCH 30.0 pg (28.0-34.0) 09/10/21 19:17 MCHC 34.0 g/dL (30.0-36.0) 09/10/21 19:17 RDW 13.2 % (12.1-15.1) 09/10/21 19:17 Plt Count 351 10^3/cmm (130-400) 09/10/21 19:17 MPV 9.5 fL (7.4-10.4) 09/10/21 19:17 Neut % (Auto) 49.3 % 09/10/21 19:17 Lymph % (Auto) 31.3 % 09/10/21 19:17 [place] % (Auto) 6.1 % 09/10/21 19:17 Eos % (Auto) 12.2 % 09/10/21 19:17 Baso % (Auto) 0.8 % 09/10/21 19:17 Neut # (Auto) 5.33 10^3/uL (1.8-7.7) 09/10/21 19:17 Lymph # (Auto) 3.4 10^3/uL (0.8-4.8) 09/10/21 19:17 [place] # (Auto) 0.7 10^3/uL (0.2-0.9) 09/10/21 19:17 Eos # (Auto) 1.3 10^3/uL (0.0-0.8) H 09/10/21 19:17 Baso # (Auto) 0.1 10^3/uL (0.0-0.1) 09/10/21 19:17 Nucleated RBC % (auto) 0 % 09/10/21 19:17 Nucleated RBCs # 0.0 /100WBC 09/10/21 19:17 Sodium 136 mmol/L (136-145) 09/10/21 19:17 Potassium 3.8 mmol/L (3.5-5.1) 09/10/21 19:17 Chloride 102 mmol/L (98-107) 09/10/21 19:17 Carbon Dioxide 21 mmol/L (22-29) L 09/10/21 19:17 Anion Gap 16.8 (5-19) 09/10/21 19:17 BUN 8 mg/dL (6-20) 09/10/21 19:17 Creatinine 0.6 mg/dL (0.5-0.9) 09/10/21 19:17 GFR Calculation 116.6 mL/min (90-130) 09/10/21 19: Glucose 96 mg/dL (65-115) 09/10/21 19:17 Calculated Osmolality 280 mOsm/kg (285-295) L 09/10/21 19:17 Calcium 9.3 mg/dL (8.5-10.5) 09/10/21 19: Total Bilirubin 0.2 mg/dL (0.15-1.2) 09/10/21 19: AST 24 U/L (0-32) 09/10/21 19: ALT 47 U/L (0-33) H 09/10/21 19:17 Alkaline Phosphatase 64 IU/L (35-105) 09/10/21 19: Total Protein 7.1 g/dL (6.6-8.7) 09/10/21 19: Albumin 4.2 g/dL (3.5-5.2) 09/10/21: Globulin 2.9 g/dL (1.3-4.6) 09/10/21 19:17 Lipase 35 U/L (13-60) 09/10/21 19:17 HCG, Qual Negative (Negative) 09/10/21 19: Urine Color Yellow (Yellow) 09/10/21 19: Urine Appearance Sl hazy (CLEAR) 09/10/21 19: Urine pH 5 (5-7) 09/10/21 19: Ur Specific [place] 1.025 (1.005-1.030) 09/10/21: Urine Protein 1+ (Negative) H 09/10/21 19: Urine Glucose (UA) Norm (Normal) 09/10/21 19: Urine Ketones 1+ (Negative) H 09/10/21 19: Urine Blood Neg (Negative) 09/10/21: Urine Nitrate Negative (Negative) 09/10/21: Urine Bilirubin 1+ (Negative) H 09/10/21 19: Urine Urobilinogen 1 mg/dL (Negative) H 09/10/21 19: Ur Leukocyte Esterase Trace (Negative) H 09/10/21 19: Urine RBC 0-4 /hpf (0-2) H 09/10/21 19: Urine WBC 0-4 /hpf (0-5) H 09/10/21 19:27 Ur Squamous Epith Cells 15-25 /hpf (0-5) H 09/10/21 19:27 Amorphous Sediment Not Reportable 09/10/21 19:27 Urine Bacteria 1+ /hpf (NONE) H 09/10/21 19:27 Urine Mucus 2+ /hpf 09/10/21 19:27 Discharge Plan Discharge Patient Disposition: Home Clinical Impression: Cholelithiasis Condition: Stable Prescriptions: New tramadol 50 mg tablet 50 mg PO TID PRN (Reason: pain) Qty: 14 0RF Held naltrexone 50 mg tablet 50 mg PO DAILY Qty: 30 2RF Hold Instructions: Resume on 09/17/21. hold while taking pain med No Action multivitamin Tablet 1 tab PO DAILY 0RF biotin 10,000 mcg capsule 10,000 mcg PO BID 0RF sertraline [Zoloft] 100 mg tablet 200 mg PO DAILY Qty: 60 2RF bupropion HCl [Wellbutrin XL] 150 mg tablet extended release 24 hr 150 mg PO QAM Qty: 30 2RF prazosin 5 mg capsule 5 mg PO .HS Qty: 30 2RF trazodone 100 mg tablet 200 mg PO .HS PRN (Reason: insomnia) Qty: 60 2RF ergocalciferol (vitamin D2) 1,250 mcg (50,000 unit) capsule 1,250 mcg PO .weekly Qty: 4 2RF lisinopril 20 mg tablet See Rx Instructions .ROUTE .COMPLEX Qty: 30 0RF Dose Instruction: Take 1 tablet by mouth once daily Rx Instructions: Take 1 tablet by mouth once daily fluconazole 150 mg tablet See Rx Instructions .ROUTE .COMPLEX Qty: 3 0RF Dose Instruction: TAKE ONE TABLET BY MOUTH EVERY 3 DAYS Rx Instructions: TAKE ONE TABLET BY MOUTH EVERY 3 DAYS loratadine [Claritin] 10 mg tablet 10 mg PO DAILY PRN (Reason: allergy symptoms) Qty: 30 2RF Reglan 10 mg tablet 10 mg PO Q6H PRN (Reason: nausea and vomiting) Qty: 20 0RF Discharge Orders: Discharge ED (Routine); Ordered 09/10/21 Ordered By: Richard Miguel Referrals: Lauren Walsh, PHYSICAL TRAINER [Primary Care Provider] - Discharge Diet: As Directed and Low Fat Discharge Activity: Resume usual activity Patient Instructions: Gallstones (ED), Opioid Safety Activity Restrictions/Additional Instructions: Follow-up with medical provider as directed. Take medications as prescribed. Return to the ER or your medical provider if condition worsens. Please read and understand discharge instructions. If any questions ask please. Coding Level of Care Code ED Front End Loader Driver for Cate Fwd Exam Comprehensive
[2021-09-10] MEDS: HYDROcodone-acetaminophen 5-325 mg Tablet 1 TAB PO (19:29)
[2021-09-10 19:32] LABS: Basophils # 0.1 10^3/uL (0.0-0.1); Basophils % 0.8 %; Eosinophils # 1.3 10^3/uL (0.0-0.8); Eosinophils % 12.2 %; Hematocrit 43.5 % (37.0-47.0); Hemoglobin 14.8 g/dL (11.5-15.3); Lymphocytes # 3.4 10^3/uL (0.8-4.8); Lymphocytes % 31.3 %; Mean Corpuscular Volume 88.2 fl (81-99); Mean Platelet Volume 9.5 fL (7.4-10.4); Monocytes # 0.7 10^3/uL (0.2-0.9); Monocytes % 6.1 %; Neutrophils # 5.33 10^3/uL (1.8-7.7); Neutrophils % 49.3 %; Nucleated Red Blood Cells % 0 %; Platelet Count 351 10^3/cmm (130-400); Red Blood Count 4.93 10^6/uL (4.1-5.3); Red Cell Distribution Width 13.2 % (12.1-15.1); White Blood Count 10.8 10^3/uL (4.0-10.0)
[2021-09-10 19:49] LABS: HCG, Serum Qual Negative (Negative)
[2021-09-10 19:51] LABS: Specific Gravity, Urine 1.025 (1.005-1.030); Urine Appearance SL Hazy (CLEAR); Urine Color Yellow (Yellow); pH Urine 5 (5-7)
[2021-09-10 19:52] LABS: Add Urine Culture? No; Add Urine Microscopic? YES; Bacteria Urine 1+ /hpf; Bilirubin Urine 1+ (Negative); Blood Urine Neg (Negative); Glucose Urine UA Norm (Normal); Ketones Urine 1+ (Negative); Leukocyte Esterase Urine Trace (Negative); Mucus Urine 2+ /hpf; Nitrate Urine Negative (Negative); Protein Urine 1+ (Negative); RBC Urine 0-4 /hpf (0-2); Squamous Epithelial Cell Urine 15-25 /hpf (0-5); Urobilinogen Urine 1 mg/dL (Negative); WBC Urine 0-4 /hpf (0-5)
[2021-09-10 19:56] LABS: Alanine Aminotransferase 47 U/L (0-33); Albumin Level 4.2 g/dL (3.5-5.2); Alkaline Phosphatase 64 IU/L (35-105); Aspartate Amino Transferase 24 U/L (0-32); Blood Urea Nitrogen 8 mg/dL (6-20); Calcium 9.3 mg/dL (8.5-10.5); Carbon Dioxide 21 mmol/L (22-29); Chloride 102 mmol/L (98-107); Globulin 2.9 g/dL (1.3-4.6); Glomerular Filtration Rate 116.6 mL/min (90-130); Glucose 96 mg/dL (65-115); Lipase 35 U/L (13-60); Osmolality Calculated 280 mOsm/kg (285-295); Sodium 136 mmol/L (136-145); Total Bilirubin 0.2 mg/dL (0.15-1.2); Total Protein 7.1 g/dL (6.6-8.7)
[2021-09-10 19:58] LABS: Anion Gap 16.8 (5-19); Potassium 3.8 mmol/L (3.5-5.1)
[2021-09-10 19:59] LABS: Slide Review Slide Review Perform
== END 2021-09-10 20:30 | disposition home or self-care (01) ==
PROVIDERS: Emergency Medicine; Emergency Provider Nurse Practitioner Family; PCP Nurse Practitioner Family
DX: K80.20 Calculus of gallbladder without cholecystitis without obstruction (principal); F17.210 Nicotine dependence, cigarettes, uncomplicated
CPT/HCPCS: 80053; 81001; 83690; 84703; 85025; 99283

== ENCOUNTER → 2021-09-16 12:49 | Outpatient (BNVA) | payer BC, MEDICAID, SELFPAY | PROVIDERS: PCP Nurse Practitioner Family; Visit Provider Social Worker | DX: F10.21 Alcohol dependence, in remission (principal); F17.210 Nicotine dependence, cigarettes, uncomplicated; F33.2 Major depressive disorder, recurrent severe without psychotic features; F41.1 Generalized anxiety disorder; F90.0 Attention-deficit hyperactivity disorder, predominantly inattentive type | CPT/HCPCS: 90834 ==

== ENCOUNTER → 2021-09-18 12:35 | Outpatient (BNVA) | payer BC, MEDICAID, SELFPAY | PROVIDERS: PCP Nurse Practitioner Family; Visit Provider Surgery | DX: K80.20 Calculus of gallbladder without cholecystitis without obstruction (principal) | CPT/HCPCS: 99203 ==

== ENCOUNTER → 2021-09-19 13:30 | Outpatient (BNVA) | payer BC, MEDICAID, SELFPAY | PROVIDERS: PCP Nurse Practitioner Family; Visit Provider Internal Medicine Cardiovascular Disease | DX: I10 Essential (primary) hypertension (principal); G47.33 Obstructive sleep apnea (adult) (pediatric); F17.210 Nicotine dependence, cigarettes, uncomplicated; F41.1 Generalized anxiety disorder; F33.2 Major depressive disorder, recurrent severe without psychotic features; F10.21 Alcohol dependence, in remission | CPT/HCPCS: 99204 ==

== ENCOUNTER → 2021-09-23 14:41 | Outpatient (BNVA) | payer BC, MEDICAID, SELFPAY | PROVIDERS: PCP Nurse Practitioner Family; Visit Provider Social Worker | DX: F41.1 Generalized anxiety disorder (principal); F33.2 Major depressive disorder, recurrent severe without psychotic features; F10.21 Alcohol dependence, in remission; F17.210 Nicotine dependence, cigarettes, uncomplicated; F90.0 Attention-deficit hyperactivity disorder, predominantly inattentive type | CPT/HCPCS: 90837 ==

== ENCOUNTER 2021-09-24 11:12 | Day surgery (SDC) | payer BC, MEDICAID, SELFPAY ==
[2021-09-24] VITALS (11 sets, daily range): BP systolic 94–156; BP diastolic 62–94; PULSE 72–90; RESP 16–19; TEMP 36.1–36.8; O2SAT 92–97; BMI 43.8
[2021-09-24] MEDS: sodium chloride 0.9% 1,000 ML 30 ML IV (12:12)
[2021-09-24] MEDS: heparin 5,000 unit/mL INJ 1 mL 3000 UNIT SUBCUT (12:13)
[2021-09-24] MEDS: acetaminophen 1,000 MG/100 ML PIGGYBACK 400 MG IV (12:13)
--- NOTE | 2021-09-24 12:51 | W.PM.OPSUD ---
Surgery/Procedure H&P Update DATE OF PROCEDURE: September 24, 2021 DATE H&P PERFORMED: 09/18/21 H&P UPDATE INFORMATION: I have reviewed H&P completed within last 30 days, I have examined patient prior to procedure and Changes to prior documentation as noted here (Patient lost 6 pounds on liquid protein diet) PREOP DIAGNOSIS: Symptomatic cholelithiasis PRIMARY INDICATION FOR PROCEDURE: The same PLANNED PROCEDURE: Operation Date: 09/24/21 13:05 Proposed Procedures p Laparoscopic Cholecystectomy(Not Applicable) - Francisco Sandoval MD
[2021-09-24] MEDS: scopolamine 1.5 Patch 1 PATCH TRANSDERMA (13:20)
--- NOTE | 2021-09-24 13:20 | ANES.PREANE2 ---
Pre-Anesthetic Assessment Height/Weight: Height 1.7 m Weight 127.006 kg Temp Pulse Resp BP Pulse Ox 97.4 F L 75 18 156/94 97 09/24/21 11:41 09/24/21 11:41 09/24/21 11:41 09/24/21 11:41 09/24/21 11:41 Preop Diagnosis: Symptomatic cholelithiasis Operation Date: 09/24/21 13:05 Proposed Procedures p Laparoscopic Cholecystectomy(Not Applicable) - Francisco Sandoval MD Familial anesthetic complications: none Was Beta Juan C taken within 24 hours: Yes Was Clonidine taken within 24 hours: N/A Last intake: Intake Last Liquid Date 09/23/21 Last Liquid Time 23:00 Last Solid Date 09/17/21 Social Alcohol (ETHOH use disorder hx in remission ) and Tobacco Exam alert, oriented x 3 and regular rate & rhythm b/l wheezing Airway Submandibular: within normal limits Cervical ROM: within normal limits Mallampati: Class I Dentition: chipped Comments: Comments: Chipped upper front tooth History/ROS No significant complaints Pulmonary Sleep Apnea (Does not wear sleep mask ) CV/HEM Hypertension None reported Hepatic None reported GI None reported Metabolic None reported Musc/skel None reported Neuropsych Anxiety and Depression Anesthetic Plan ASA status: 3 (31 year old morbidly obese female smoker w/ hx of htn, anxiety, depression, and ETOH use disorder . ) Anesthesia: Anesthesia Evaluation and General Other: We discussed risk and benefits of general anesthesia including PONV, sore throat (sometimes severe), corneal abrasion, positioning and peripheral nerve injuries, life threatening allergic reaction, post operative ICU admission requiring prolonged intubation, stroke, heart attack, , and rare incidences of recall. Patient consents to proceed with general anesthesia. Risk of > 500 ml blood loss (7ml/kg in children): No Medications/Allergies Home Medications Medication Instructions Recorded Confirmed Last Taken Type multivitamin 1 tab PO DAILY 05/10/21 09/24/21 09/23/21 08:00 History ergocalciferol (vitamin D2) 1,250 1,250 mcg PO .weekly #4 cap 07/31/21 09/24/21 09/22/21 08:00 Rx mcg (50,000 unit) capsule biotin 10,000 mcg capsule 10,000 mcg PO BID cap 09/02/21 09/24/21 09/23/21 19:30 History bupropion HCl 150 mg 24 hr tablet, 150 mg PO QAM #30 tab 09/02/21 09/24/21 09/23/21 08:00 Rx extended release (Wellbutrin XL) loratadine 10 mg tablet (Claritin) 10 mg PO DAILY PRN #30 tab 09/02/21 09/24/21 09/23/21 08:00 Rx sertraline 100 mg tablet (Zoloft) 200 mg PO DAILY #60 tab 09/02/21 09/24/21 09/23/21 19:30 Rx metoclopramide HCl 10 mg tablet 10 mg PO Q6H PRN #20 tab 09/09/21 09/24/21 Unknown Rx (Reglan) tramadol 50 mg tablet 50 mg PO TID PRN #14 tab 09/10/21 09/24/21 Unknown Rx ondansetron HCl 4 mg tablet 4 mg PO QID PRN #20 tab 09/16/21 09/24/21 Unknown Rx lisinopril 20 mg tablet See Rx Instructions .ROUTE 09/17/21 09/24/21 09/23/21 19:30 Rx .COMPLEX #30 tab bacillus coagulans-inulin 1 1 cap PO DAILY 09/19/21 09/24/21 09/23/21 08:00 History billion cell-250 mg capsule (Probiotic with Prebiotic) metoprolol succinate 25 mg 25 mg PO DAILY #90 tab 09/19/21 09/24/21 09/23/21 08:00 Rx tablet,extended release 24 hr trazodone 100 mg tablet 100 mg PO .HS PRN 09/24/21 09/24/21 09/23/21 19:30 History Allergies Allergy/AdvReac Type Severity Reaction Status Date / Time No Known Allergies Allergy Verified 09/24/21 08:58 Current Medications Generic Name Dose Route Start Last Admin Trade Name Freq PRN Reason Stop Dose Admin Sodium Chloride 1,000 mls @ 30 mls/hr 09/24/21 11:30 09/24/21 12:12 Sodium Chloride 0.9% IV 09/25/21 11:29 30 mls/hr .Q24H JAMAAL Administration PFSH Anesthesia Medical History Psychiatric care Surgical History History of tonsillectomy and adenoidectomy History of wisdom tooth extraction Social History Smoking and tobacco status: current every day smoker (5 cigs/day) cigarettes Packs smoked per day: 0.25 Years cigarettes smoked: 16 Quit status (tobacco): has tried quititng Number of times tried to quit tobacco: 2 Second hand smoke exposure: No Alcohol intake: current Alcohol intake frequency: 0-2 Drinks per Day Female Reproductive History Date of last menstrual period: 10/24/20 Data Anesthesia Cardiac Studies: No Data to Display
[2021-09-24 13:52] LABS: OR HCG Qualitative Urine Negative (Negative)
[2021-09-24] MEDS: ampicillin-sulbactam 3 GM in sodium chloride 0.9% (plus) 50 ML IV (14:40)
[2021-09-24] MEDS: lidocaine 2% INJ 20 mL INJECTION (14:57)
--- NOTE | 2021-09-24 15:43 | PM.OP ---
Operative Report Date of procedure: September 24, 2021 Pre-op diagnosis: Preop Diagnosis Symptomatic cholelithiasis Post-op diagnosis: Chronic calculus cholecystitis Procedure done: Laparoscopic cholecystectomy Specimens removed/disposition: Gallbladder and contents Surgeon: Francisco Sandoval MD Pharmacology Associate: Surgical techPat Alberts Heather and Eugenia Circulating nurses Karen and Lashon Collins Anesthesia: General ([facility] Dr. Vera, Dr. Christie and GHAZALA Butler) Estimated blood loss (mL): 10 IV fluids (mL): 600 Procedure: Patient was identified in the holding area and taken back to the operative suite, placed in supine position intubated by anesthesia . Time-out was done verifying the patient's name/date of /planned procedure and destination after the procedure, all were in agreement. SCDs confirmed to be functioning, preoperative antibiotics administered per protocol, and beta ruperto protocol was confirmed. Patient was appropriately secured to the table, footboard was applied to the OR table, before prep and drape anesthesia was asked to tilt the table back and forth to make sure that the patient is appropriately secured and she was. Prep and drape of the abdomen was done under the usual sterile technique, followed by that supraumbilical skin incision,skin incision was done by a 15 blade knife, and stay sutures were applied to the fascia and Mason trocar technique was used to enter the abdominal without injuring any abdominal viscera, started by low flow gas insufflation followed by a high flow, started with a 10 mm laparoscope and under direct vision there was no evidence of any injuries, the scope then switched to a 30? ,10 millimeter scope and under direct visualization 5 millimeter trocar was inserted in the epigastric region followed by two 5 mm trocars were inserted in the right upper quadrant that was done after injection of local lidocaine 2% at all incision sites. Gallbladder showed chronic cholecystitis and Fatty Liver Patient was then positioned in the head up and tilted to the left. Ratcheted forceps were introduced into the lateral most 5mm port and was applied unto the fundus of the gallbladder cephalad and using Bullet forceps the infundibulum of the gallbladder was retracted laterally. Using [place] forceps then L-hook cautery to dissect the peritoneum overlying the Calot's triangle which was then opened medially and laterally until the cystic duct and the cystic artery were skeletonized. Dissection was carried along the body of the gallbladder and after ensuring critical view of safety was identfied. Cystic duct and cystic artery where seen connected to the gallbladder. Clips were applied on the cystic duct towards the common bile duct 1 towards the gallbladder then divided is in sharp scissors, 2 clips were then applied onto the cystic artery and 1 towards the gallbladder and divided by sharp scissors. Additional traversing vessel was clipped and divided. Dissection was then carried along of the gallbladder from the gallbladder fossa using cautery as well as sharp dissection with heat energy. The gallbladder then was dissected out from the gallbladder fossa totally , cholecystectomy was then achieved and was placed in an Endo Catch bag and then retrieved from the Mason trocar site under direct visualization using a 5 mm 30? scope through the epigastric trocar, specimen was then passed to the circulating nurse to go for permanent pathology,irrigation and hemostasis was done to the gallbladder fossa after hemostasis was secured, final survey laparoscopy was done that showed no injuries. Suction irrigation was obtained. The supraumbilical fascial defect was then closed using interrupted number one PDS sutures using a fascial closure device ;Kalyan Gabriel under direct visualization following that Gas was allowed to deflate,Trocars were then taken out under direct vision there was no evidence of bleeding. Specimen was passed to the circulating nurse for permanent pathology. No drains were placed and the supraumbilical incision as well as all trocar sites were closed by 3/0 Vicryl followed by 4-0 Monocryl to approximate the skin edges of the incisions , dressing was applied in the form of surical glue and the patient patient got extubated and was taken to recovery area in a stable condition. Count of sponges,needles and instruments were completed at the end of the procedure I was present for the whole entire procedure.
[2021-09-24] MEDS: fentaNYL 50 mcg/mL INJ 2mL IVP (16:12)
[2021-09-24] MEDS: HYDROcodone-acetaminophen 5-325 mg Tablet 1 TAB PO (17:03)
--- NOTE | 2021-09-24 17:48 | ANE.PACU2 ---
Inpatient post-anesthesia follow up: Airway intact: Yes Vital signs: Temperature 97.0 F Pulse Rate 72 Respiratory Rate 17 Blood Pressure 128/81 Pulse Oximetry 92 Oxygen Delivery Me thod Room Air Oxygen Flow Rate 3 Fraction of Inspir ed Oxygen Hydration adequate: Yes Nausea and vomiting: No Pain level: 1 Mental status: Baseline
== END 2021-09-24 17:18 | disposition home or self-care (01) ==
PROVIDERS: Anesthesiology; PCP Nurse Practitioner Family; Visit Provider Surgery
PROC: 0FT44ZZ Resection of Gallbladder, Percutaneous Endoscopic Approach (ICD-10-PCS; CPT 47562; principal; 2021-09-24 13:05)
DX: K80.10 Calculus of gallbladder with chronic cholecystitis without obstruction (principal); K76.0 Fatty (change of) liver, not elsewhere classified; G47.30 Sleep apnea, unspecified; F17.210 Nicotine dependence, cigarettes, uncomplicated
CPT/HCPCS: 47562; 84703; 88304; J0295; J1644; J2250; J2704; J3010; J3490; J7030

== ENCOUNTER → 2021-09-30 14:41 | Outpatient (BNVA) | payer BC, MEDICAID, SELFPAY | PROVIDERS: PCP Nurse Practitioner Family; Visit Provider Social Worker | DX: F41.1 Generalized anxiety disorder (principal); F33.2 Major depressive disorder, recurrent severe without psychotic features; F10.21 Alcohol dependence, in remission; F17.210 Nicotine dependence, cigarettes, uncomplicated; F90.0 Attention-deficit hyperactivity disorder, predominantly inattentive type | CPT/HCPCS: 90837 ==

== ENCOUNTER → 2021-10-07 13:07 | Outpatient (BNVA) | payer BC, MEDICAID, SELFPAY | PROVIDERS: PCP Nurse Practitioner Family; Visit Provider Surgery | DX: F41.1 Generalized anxiety disorder (principal); F33.2 Major depressive disorder, recurrent severe without psychotic features; F10.21 Alcohol dependence, in remission; F17.210 Nicotine dependence, cigarettes, uncomplicated; F90.0 Attention-deficit hyperactivity disorder, predominantly inattentive type | CPT/HCPCS: 90837; 90834 ==

== ENCOUNTER 2021-10-09 20:00 | Outpatient (CLI) | payer BC, MEDICAID, SELFPAY | END 2021-10-09 20:01 | disposition home or self-care (01) | LOC: SLEEP 10-10 05:39 | PROVIDERS: PCP Nurse Practitioner Family; Visit Provider Nurse Practitioner Family | DX: R40.0 Somnolence (principal); R06.83 Snoring | CPT/HCPCS: 95810 ==

== ENCOUNTER → 2021-10-14 14:47 | Outpatient (BNVA) | payer BC, MEDICAID, SELFPAY | PROVIDERS: PCP Nurse Practitioner Family; Visit Provider Social Worker | DX: F41.1 Generalized anxiety disorder (principal); F33.2 Major depressive disorder, recurrent severe without psychotic features; F10.21 Alcohol dependence, in remission; F17.210 Nicotine dependence, cigarettes, uncomplicated; F90.0 Attention-deficit hyperactivity disorder, predominantly inattentive type | CPT/HCPCS: 90834 ==

== ENCOUNTER → 2021-10-15 07:26 | Outpatient (BNVA) | payer BC, MEDICAID, SELFPAY | PROVIDERS: PCP Nurse Practitioner Family; Visit Provider Psychiatry & Neurology Psychiatry | DX: F41.1 Generalized anxiety disorder (principal); F33.2 Major depressive disorder, recurrent severe without psychotic features; F17.210 Nicotine dependence, cigarettes, uncomplicated; F10.21 Alcohol dependence, in remission | CPT/HCPCS: 99214 ==

== ENCOUNTER → 2021-10-29 12:46 | Outpatient (BNVA) | payer BC, SELFPAY | PROVIDERS: PCP Nurse Practitioner Family; Visit Provider Social Worker | DX: F41.1 Generalized anxiety disorder (principal); F33.2 Major depressive disorder, recurrent severe without psychotic features; F10.21 Alcohol dependence, in remission; F17.210 Nicotine dependence, cigarettes, uncomplicated; F90.0 Attention-deficit hyperactivity disorder, predominantly inattentive type | CPT/HCPCS: 90837 ==

== ENCOUNTER → 2021-11-04 14:47 | Outpatient (BNVA) | payer BC, SELFPAY | PROVIDERS: PCP Nurse Practitioner Family; Visit Provider Social Worker | DX: F41.1 Generalized anxiety disorder (principal); F33.2 Major depressive disorder, recurrent severe without psychotic features; F10.21 Alcohol dependence, in remission; F17.210 Nicotine dependence, cigarettes, uncomplicated; F90.0 Attention-deficit hyperactivity disorder, predominantly inattentive type | CPT/HCPCS: 90834 ==

== ENCOUNTER → 2021-11-11 14:34 | Outpatient (BNVA) | payer BC, SELFPAY | PROVIDERS: PCP Nurse Practitioner Family; Visit Provider Social Worker | DX: F41.1 Generalized anxiety disorder (principal); F33.2 Major depressive disorder, recurrent severe without psychotic features; F10.21 Alcohol dependence, in remission; F17.210 Nicotine dependence, cigarettes, uncomplicated; F90.0 Attention-deficit hyperactivity disorder, predominantly inattentive type | CPT/HCPCS: 90837 ==

== ENCOUNTER → 2021-11-18 14:47 | Outpatient (BNVA) | payer BC, SELFPAY | PROVIDERS: PCP Nurse Practitioner Family; Visit Provider Social Worker | DX: F41.1 Generalized anxiety disorder (principal); F33.2 Major depressive disorder, recurrent severe without psychotic features; F10.21 Alcohol dependence, in remission; F17.210 Nicotine dependence, cigarettes, uncomplicated; F90.0 Attention-deficit hyperactivity disorder, predominantly inattentive type | CPT/HCPCS: 90837 ==

== ENCOUNTER → 2021-11-25 14:45 | Outpatient (BNVA) | payer BC, SELFPAY | PROVIDERS: PCP Nurse Practitioner Family; Visit Provider Social Worker | DX: F41.1 Generalized anxiety disorder (principal); F33.2 Major depressive disorder, recurrent severe without psychotic features; F10.21 Alcohol dependence, in remission; F17.210 Nicotine dependence, cigarettes, uncomplicated; F90.0 Attention-deficit hyperactivity disorder, predominantly inattentive type | CPT/HCPCS: 90837 ==

== ENCOUNTER → 2021-11-28 14:38 | Outpatient (BNVA) | payer BC, SELFPAY | PROVIDERS: PCP Nurse Practitioner Family; Visit Provider Nurse Practitioner Psychiatric/Mental Health | DX: F41.1 Generalized anxiety disorder (principal); F31.81 Bipolar II disorder; F10.21 Alcohol dependence, in remission | CPT/HCPCS: 99214 ==